=== PATIENT | female | born 1955 | race Caucasian/White ===

== ENCOUNTER 2021-12-07 13:05 | Emergency (ER) | payer MEDICARE, MEDICAID, SELFPAY ==
[2021-12-07] VITALS (21 sets, daily range): BP systolic 132–178; BP diastolic 75–118; PULSE 78–170; RESP 15–62; TEMP 36.3; O2SAT 97–100
--- NOTE | ~2021-12-07 | XR_ITS ---
XR hand BI arthritis min 3V DATE: 12/07/2021 13:53 INDICATION: Chronic swelling and deformity TECHNIQUE: 4 views of each hand. COMPARISON: None FINDINGS: There is extensive periarticular calcification of the wrist and hand, with joint space narr owing, some erosions, including typical punched out lesions, for example at the base of the distal ph alanx of the left first digit, also of the lateral head of proximal phalanx and lateral base of the m iddle phalanx of the left second digit, suggesting gout. Joint space narrowing and spurring consiste nt with osteoarthritis is noted in multiple joints as well. No fracture is detected. IMPRESSIONS:: Extensive periarticular calcifications of the wrist and hand joints, including radiocar pal, carpal, carpometacarpal, metacarpophalangeal, proximal and distal interphalangeal joints, with e rosions, including punched out erosions, suggestive of gout Polyarticular osteoarthritis Reviewed, dictated and finalized at location B. IMPRESSIONS:: Extensive periarticular calcifications of the wrist and hand join ts, including radiocarpal, carpal, carpometacarpal, metacarpophalangeal, proxim al and distal interphalangeal joints, with erosions, including punched out eros ions, suggestive of gout Polyarticular osteoarthritis
--- NOTE | ~2021-12-07 | XR_ITS ---
XR chest 2V DATE: 12/07/2021 14:31 INDICATION: Atrial fibrillation with rapid ventricular response. Wheezing. TECHNIQUE: AP and lateral views COMPARISON: 08/26/2004 PA and lateral chest FINDINGS: Cardiomegaly. There are bibasilar infiltrates and/atelectasis. Minimal pleural effusions ar e suggested. There is pulmonary vascular redistribution which might indicate mild pulmonary venous hy pertension. No pneumothorax. There is levoscoliosis of the upper thoracic spine and prominent dextroscoliosis of the lower thoraci c and lumbar spine. Degenerative changes of the thoracic and lumbar spine. Diffuse osteopenia. IMPRESSION: Cardiomegaly, pulmonary vascular redistribution and minimal pleural effusions, which may indicate mild congestive heart failure Mild bibasilar infiltrate or atelectasis Prominent thoracic and lumbar scoliosis and degenerative change Osteopenia Reviewed, dictated and finalized at location B.
--- NOTE | 2021-12-07 13:25 | ECG_ITS ---
Measurements Intervals [place] Rate: 170 P: DE: 0 QRS: -47 QRSD: 87 T: 75 QT: 255 QTc: 429 Interpretive Statements SUPRAVENTRICULAR TACHYCARDIA, POSSIBLE ATRIAL FLUTTER LEFT AXIS DEVIATION SEPTAL MYOCARDIAL INFARCTION , PROBABLY OLD ABNORMAL ECG NO PREVIOUS ECG AVAILABLE FOR COMPARISON Electronically Signed On 12-08-2021 13:21:37 CDT by Gonzales Mena M.D.
--- NOTE | 2021-12-07 13:26 | ED.EXTPRO ---
HPI - Extremity Problem General Chief complaint: Extremity Problem,Nontraumatic <MELISSA Rios Last Filed: 12/07/21 17:57> Stated complaint: arthritis to bilateral hands <Esperanza Aguilar PA-C - Last Filed: 12/07/21 17:57> Time Seen by Provider: 12/07/21 13:12 <MELISSA Rios Last Filed: 12/07/21 17:57> History of Present Illness HPI Narrative: Patient is a 66-year-old female here for evaluation of bilateral hand pain and swelling. Patient states that she has had chronic hand pain for years and her hands have been swollen for as long as she can remember that has been attributed to arthritis. She takes Tylenol as needed for pain, last took this AM. 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 She saw a new PCP today who recommended ED evaluation. Patient states her heart rate is always fast but denies chest pain, palpitations, SOB. <MELISSA Rios Last Filed: 12/07/21 17:57> Related Data Allergies/Adverse reactions: Allergies Allergy/AdvReac Type Severity Reaction Status Date / Time No Known Allergies Allergy Unverified 12/07/21 13:06 <Esperanza Aguilar PA-C - Last Filed: 12/07/21 17:57> Review of Systems Review of Systems: Gen: Denies fevers or chills Eyes: Denies eye pain or visual change ENT: Denies congestion Respiratory: Denies shortness of breath or cough CV: Denies chest pain or palpitations GI: Denies abdominal pain nausea, emesis or diarrhea denies burning, urgency, frequency or hematuria Musculoskeletal: Reports chronic bilateral hand pain. Neuro: Denies numbness, tingling, weakness or focal weakness Skin: Denies rash Except as documented, all other systems reviewed and negative <MELISSA Rios Last Filed: 12/07/21 17:57> [facility] Family History Family History: Family History (Updated 12/18/17 @ 14:07 by DOCTOR UNKNOWN) Sibling Family history of suicide, Onset Age: 36 Family history of elevated blood lipids Family history of malignant neoplasm of ovary, Onset Age: 35 Patient's brother is Mother Family history of transient ischemic attacks, Onset Age: 73 Patient's mother is Father Family history of malignant neoplasm, Onset Age: 57 Patient's father is Other Family history of arthritis <Esperanza Aguilar PA-C - Last Filed: 12/07/21 17:57> Social History Social History: Social History Smoking status: Smoker, status unknown Second hand tobacco smoke exposure: Yes Alcohol intake: current <Esperanza Aguilar PA-C - Last Filed: 12/07/21 17:57> Exam Narrative: APPEARANCE: Appears older than stated age Head: Normocephalic and atraumatic. EYES: PERRLA/EOMI, conjunctivae clear NOSE: No nasal drainage EARS: External ear normal in appearance THROAT: Oropharynx is clear. Mucous membranes are moist. NECK: Supple. No adenopathy, no masses. RESPIRATORY: Expiratory wheezing throughout lung guillermo. Airway patent, respirations nonlabored. no rales, rhonchi. CARDIOVASCULAR: Tachycardic. irregular rhythm without murmurs, rubs, or gallops. ABDOMINAL: Normoactive bowel sounds. Soft, nontender, nondistended. No rebound tenderness or guarding. MUSCULOSKELETAL: Marked swelling of bilateral hands at the MCP joints. Right hand with clawhand deformity; states she is chronically unable to move digits 4-5 on the right. Full range of motion in digits 1-3 on right and digits 1-5 on left. No tenderness to palpation along joints. Esvin nodes. NEURO: Normal speech. No focal neurologic deficits. SKIN: Skin is warm and dry. No rashes. PSYCHIATRIC: Normal affect/mood. <Esperanza Aguilar PA-C - Last Filed: 12/07/21 17:57> Course PRESCHOOL TEACHER ASSISTANT/PA Physician Supervision For this patient encounter, I reviewed the PRESCHOOL TEACHER ASSISTANT or PA documentation, t
[2021-12-07 14:15] LABS: Basophils Percent Auto 0.3 % (0.2-1.2); Eosinophils Percent Auto 10.5 % (0-4.4); Hematocrit 34.8 % (37.0-47.0); Hemoglobin 10.5 g/dL (12.0-15.0); Immature Granulocyte Absolute 0.03 K/mm3 (0.00-0.031); Immature Granulocyte Percent A 0.3 % (0-0.5); Lymphocytes Absolute Auto 1.79 K/mm3 (0.9-3.2); Lymphocytes Percent Auto 19.2 % (18.3-44.2); Mean Corpuscular HGB Conc 30.2 g/dl (32-36); Mean Corpuscular Hemoglobin 26.4 pg (26-34); Mean Corpuscular Volume 87.7 fl (80-100); Mean Platelet Volume 11.2 fl (7.4-10.4); Monocytes Absolute Auto 0.6 K/mm3 (0.1-0.6); Monocytes Percent Auto 6.6 % (2.6-8.5); Neutrophils Absolute Auto 5.9 K/mm3 (1.3-6.7); Neutrophils Percent Auto 63.1 % (45.5-73.1); Nucleated Red Blood Cells Perc 0.3 % (0.0-0.2); Platelet Count Result 421 k/mm3 (150-375); Red Blood Count 3.97 M/mm3 (4.2-5.4); Red Cell Distribution Width 18.1 % (11.5-14.5); White Blood Count 9.3 K/mm3 (4.5-10.0)
[2021-12-07] MEDS: METOPROLOL TARTRATE INJ 5 MG/5 ML VIAL 2.5 MG IV PUSH (14:16)
[2021-12-07 14:31] LABS: Phosphorus 3.7 mg/dL (2.5-4.5)
[2021-12-07 14:32] LABS: Alanine Aminotransferase 38 U/L (6-35); Albumin Level 3.6 g/dL (3.5-5.1); Alkaline Phosphatase 117 U/L (38-126); Anion Gap 7 mmol/L (8-16); Aspartate Amino Transferase 42 U/L (14-36); Bilirubin,Total 0.1 mg/dL (0.2-1.3); Blood Urea Nitrogen 22 mg/dL (7-17); Calcium 8.1 mg/dL (8.4-10.2); Carbon Dioxide 27 mmol/L (22-30); Chloride 104 mmol/L (98-107); Estimated CRCL calculation 66 ml/min; Estimated Glomerular Filt Rate > 60; Glucose 124 mg/dL (65-110); Potassium 3.8 mmol/L (3.4-5.0); Sodium 138 mmol/L (137-145)
[2021-12-07] MEDS: METOPROLOL SUCCINATE EXT REL 25 MG TABCR PO (15:12)
[2021-12-07 15:20] LABS: NT Pro B Type Natriuretic Pept 3040 pg/mL (5-100)
[2021-12-07 15:40] LABS: Amphetamine Screen Urine Negative (Negative); Barbiturate Screen Urine Negative (Negative); Benzodiazepines Screen Urine Negative (Negative); Cannabinoid Screen Urine Positive (Negative); Cocaine Screen Urine Negative (Negative); Methadone Screen Urine Negative (Negative); Opiate Screen Urine Negative (Negative); Phencyclidine Screen Urine Negative (Negative)
[2021-12-07] MEDS: ACETAMINOPHEN 325 MG TABLET 650 MG PO (16:25)
[2021-12-07 16:53] LABS: Prothrombin Time 12.9 Seconds (11.1-14.7)
[2021-12-07 16:54] LABS: Partial Thromboplastin Time 31.3 SECONDS (22.3-36.8)
== END 2021-12-07 17:06 | disposition home or self-care (01) ==
PROVIDERS: Physician Assistant; Emergency Provider General Practice; PCP Emergency Medicine
DX: M19.042 Primary osteoarthritis, left hand (principal); M19.041 Primary osteoarthritis, right hand; I48.91 Unspecified atrial fibrillation; R94.31 Abnormal electrocardiogram [ECG] [EKG]; I51.7 Cardiomegaly; M41.9 Scoliosis, unspecified; M85.88 Other specified disorders of bone density and structure, other site; R91.8 Other nonspecific abnormal finding of lung field; I47.1 Supraventricular tachycardia
CPT/HCPCS: 36415; 71046; 73130; 80053; 80307; 83735; 83880; 84100; 84443; 85025; 85610; 85730; 93005; 96374; 99284; A9270

== ENCOUNTER 2023-01-06 11:31 | Outpatient (CLI) | payer MEDICARE, MEDICAID, SELFPAY ==
[2023-01-06 11:54] LABS: Basophils Percent Auto 0.3 % (0.2-1.2); Eosinophils Absolute Auto 0.9 K/mm3 (0-0.3); Eosinophils Percent Auto 7.9 % (0-4.4); Hematocrit 35.2 % (37.0-47.0); Hemoglobin 11.1 g/dL (12.0-15.0); Immature Granulocyte Absolute 0.06 K/mm3 (0.00-0.031); Immature Granulocyte Percent A 0.5 % (0-0.5); Lymphocytes Absolute Auto 2.05 K/mm3 (0.9-3.2); Lymphocytes Percent Auto 18.3 % (18.3-44.2); Mean Corpuscular HGB Conc 31.5 g/dl (32-36); Mean Corpuscular Hemoglobin 27.2 pg (26-34); Mean Corpuscular Volume 86.3 fl (80-100); Mean Platelet Volume 10.9 fl (7.4-10.4); Monocytes Absolute Auto 1.1 K/mm3 (0.1-0.6); Neutrophils Absolute Auto 7.1 K/mm3 (1.3-6.7); Nucleated Red Blood Cells Perc 0.2 % (0.0-0.2); Platelet Count Result 346 k/mm3 (150-375); Red Blood Count 4.08 M/mm3 (4.2-5.4); Red Cell Distribution Width 19.3 % (11.5-14.5); White Blood Count 11.2 K/mm3 (4.5-10.0)
[2023-01-06 13:11] LABS: Iron 36 ug/dL (37-170)
[2023-01-06 13:15] LABS: Alanine Aminotransferase 81 U/L (6-35); Albumin Level 3.8 g/dL (3.5-5.1); Alkaline Phosphatase 159 U/L (38-126); Anion Gap 4 mmol/L (8-16); Aspartate Amino Transferase 108 U/L (14-36); Bilirubin,Total 0.4 mg/dL (0.2-1.3); Blood Urea Nitrogen 27 mg/dL (7-17); Calcium 8.7 mg/dL (8.4-10.2); Carbon Dioxide 31 mmol/L (22-30); Chloride 102 mmol/L (98-107); Estimated Glomerular Filt Rate > 60; Glucose 83 mg/dL (65-110); Lactate Dehydrogenase 559 U/L (120-246); Potassium 4.6 mmol/L (3.4-5.0); Sodium 137 mmol/L (137-145)
[2023-01-06 13:23] LABS: Percent Iron Saturation 9 % (20-50)
[2023-01-06 14:24] LABS: Folic Acid 9.2 ng/mL (2.76->20)
[2023-01-09 15:42] LABS: Methylmalonic Acid 296 nmol/L (87-318)
[2023-01-09 17:27] LABS: Albumin 3.3 g/dL (3.8-4.8); Alpha 1 Globulin 0.4 g/dL (0.2-0.3); Alpha 2 Globulin 0.8 g/dL (0.5-0.9); Beta 1 Globulin 0.5 g/dL (0.4-0.6); Gamma Globulin 1.6 g/dL (0.8-1.7)
[2023-01-09 20:52] LABS: Soluble Transferrin Receptor 1.36 mg/L (0.76-1.76)
== END 2023-01-06 11:32 | disposition home or self-care (01) ==
LOC: ANHLAB 11:35
PROVIDERS: PCP Emergency Medicine; Visit Provider Internal Medicine Hematology & Oncology
DX: D64.9 Anemia, unspecified (principal)
CPT/HCPCS: 36415; 80053; 82607; 82728; 82746; 83540; 83550; 83615; 83921; 84155; 84165; 84238; 85025

== ENCOUNTER 2024-06-11 21:37 | Inpatient (IN) | payer MEDICARE, MEDICAID, SELFPAY ==
[2024-06-11] VITALS (9 sets, daily range): BP systolic 103–131; BP diastolic 80–93; PULSE 84–106; RESP 20–23; TEMP 36; O2SAT 94–100
--- NOTE | ~2024-06-11 | CT_ITS ---
History: Fall PROCEDURE: CT head without contrast. COMPARISON: None TECHNIQUE: Axial imaging of the head performed from the skull base to the vertex without IV contrast. Sagittal a nd coronal reformations obtained. DLP: 605 mGy-cm FINDINGS: The ventricles are enlarged. The dilatation of the ventricles is proportional to the degree of sulcal prominence, not uncommon in the senescent brain. Decreased attenuation is identified within the periventricular white matter, likely secondary to micr ovascular ischemic disease. There is no mass, mass effect or midline shift. There is no abnormal extra-axial fluid collection or intracranial hemorrhage. Mucoperiosteal thickening within the bilateral ethmoid sinuses. The mastoid air cells are well aerated. No acute displaced fractures within the overlying cranium. Impression: No acute intracranial hemorrhage or suspicious mass effect. Inflammatory sinus disease. Reviewed, dictated and finalized at location A. UAGE TRANSLATOR Impression: No acute intracranial hemorrhage or suspicious mass effect. Inflammatory sinus disease.
--- NOTE | ~2024-06-11 | XR_ITS ---
EXAMINATION: XR chest 2V DATE: 06/14/2024 08:09 INDICATION: Pneumonia and shortness of breath TECHNIQUE: frontal and lateral views of the chest were obtained. COMPARISON: Chest radiograph dated 06/13/2024 FINDINGS: Calcified pleural plaques at the periphery of the right lung. Calcified nodule at the right apex cons istent with old granulomatous disease. Unchanged airspace opacities in the bilateral lower lung zones . No pleural effusion or pneumothorax. Cardiomegaly. Moderate thoracolumbar dextroscoliosis IMPRESSION: 1. Persistent opacities in the bilateral lower lung zones which could represent atelectasis, pneumoni a, mild pulmonary edema or some combination thereof. 2. Cardiomegaly. Reviewed, dictated and finalized at location A. FACTURING WEAVER IMPRESSION: 1. Persistent opacities in the bilateral lower lung zones which could represent atelectasis, pneumonia, mild pulmonary edema or some combination thereof. 2. Cardiomegaly.
--- NOTE | ~2024-06-11 | XR_ITS ---
CHEST RADIOGRAPH CLINICAL HISTORY: covid, hypoxia . COMPARISON: 12/07/2021 TECHNIQUE: Single portable view of the chest. FINDINGS The cardiomediastinal silhouette is enlarged, unchanged. Increased interstitial markings are identified bilaterally, findings suggesting mild pulmonary vascul ar congestion. Patchy alveolar infiltrates detected bilaterally. The lungs are otherwise clear. IMPRESSION: Mild pulmonary vascular congestion with patchy bilateral infiltrates Reviewed, dictated and finalized at location A. DER SET UP OPERATOR INTERNAL
--- NOTE | ~2024-06-11 | XR_ITS ---
CHEST RADIOGRAPH CLINICAL HISTORY: pneumonia . COMPARISON: 06/11/2024 TECHNIQUE: Single portable view of the chest. FINDINGS S shaped curvature of the thoracic spine is identified distorting the contents of the cardiomediastin al silhouette. Patchy infiltrate of the right mid to lower lung field. Increased interstitial markings are identified bilaterally, findings suggesting mild pulmonary vascul ar congestion. The remainder of the lungs are clear. IMPRESSION: Mild pulmonary vascular congestion with a right mid to lower lobe infiltrate Reviewed, dictated and finalized at location A. ERNAIL TECHNICIAN
--- NOTE | ~2024-06-11 | CT_ITS ---
History: Fall PROCEDURE: CT cervical spine without intravenous contrast. Examination is markedly limited by motion artifact and patient position. COMPARISON: Reference is made to an MRI examination of the cervical spine dated 12/08/2009 TECHNIQUE: Multiple contiguous axial images of the cervical spine were performed without the administration of i ntravenous contrast. DLP: 153 mGy-cm FINDINGS: 4.5 mm of anterolisthesis of C3 onto C4, not present on the 2010 examination. Degenerative disease is also noted, with osteophyte formation, disc space narrowing, endplate changes and vacuum phenomena. Kyphosis is noted. No acute fractures are present. The bilateral lung apices are unremarkable. No soft tissue abnormality is present. The airway is patent. Impression: Significant degenerative disease with 4.5 mm of anterolisthesis of C3 onto C4, an interval change fro 2009, age indeterminate. Noncontrast enhanced MRI of the cervical spine may be performed for determination of the acuity. Reviewed, dictated and finalized at location A. E COMMERCE MANAGER Impression: Significant degenerative disease with 4.5 mm of anterolisthesis of C3 onto C4, an interval change from 2009, age indeterminate. Noncontrast enhanced MRI of the cervical spine may be performed for determinati on of the acuity.
--- NOTE | ~2024-06-11 | XR_ITS ---
HISTORY: fall, dementia COMPARISON: None TECHNIQUE: 2 views of the bilateral hips along with an AP view of the pelvis FINDINGS: No acute fracture or dislocation is identified. Superior lateral sclerosis of the bilateral femoral acetabular joint spaces are present consistent with osteoarthritis. Degenerative disease within the lower lumbar spine. Fecal stasis within the colon. Air within the rectum. Mineralization is age advanced. IMPRESSION: Significant degenerative disease, without acute fracture. Reviewed, dictated and finalized at location A. GER COSMETICS
--- NOTE | 2024-06-11 21:50 | ED_ITS ---
HPI - Fall General Chief Complaint: Fall <MELISSA Downing Last Filed: 06/12/24 02:08> Stated Complaint: GLF <MELISSA Downing Last Filed: 06/12/24 02:08> Time Seen by Provider: 06/11/24 21:39 <MELISSA Downing Last Filed: 06/12/24 02:08> Source: patient, RN notes reviewed and old records reviewed <MELISSA Downing Last Filed: 06/12/24 02:08> Mode of arrival: EMS <MELISSA Downing Last Filed: 06/12/24 02:08> Limitations: dementia <MELISSA Downing Last Filed: 06/12/24 02:08> History of Present Illness HPI Narrative: Patient is a 68 y/o female, with PMH of AFIB on Eliquis/amiodarone/diltiazem, dementia, bipolar disorder, who presents to the ED via EMS with report of a fall. Patient is a resident of [facility]. Per [facility] report, patient is A&O X2 at baseline. Had an unwitnessed fall in the bathroom today. They believe she hit her head on the toilet. Unknown LOC. Patient has no complaints. Sent here for further evaluation. Patient denies any pain. Per ems report, patient was found to be hypoxic on RA upon their arrival down to 87%. She was placed on 2L NC. No previous O2 requirement. Was diagnosed with covid 19 2 days ago. <Colleen Vega PA-C - Last Filed: 06/12/24 02:08> Related Data Home Medications: Home Medications ?Medication ?Instructions ?Recorded ?Confirmed ?Last Taken ?Type albuterol sulfate 90 mcg/actuation 2 inh inhalation Q4H PRN Shortness 10/24/23 10/24/23 Unknown History aerosol inhaler Of Breath Or Wheezing amiodarone 200 mg tablet 200 mg PO DAILY 10/24/23 10/24/23 Unknown History atorvastatin 40 mg tablet (Lipitor) 40 mg PO DAILY 06/28/24 06/28/24 Unknown History diltiazem HCl 180 mg 180 mg PO DAILY 10/24/23 10/24/23 Unknown History capsule,extended release 24 hr furosemide 40 mg tablet 40 mg PO DAILY 10/24/23 10/24/23 Unknown History losartan 25 mg tablet mg 10/24/23 Unknown History <Colleen Vega PA-C - Last Filed: 06/12/24 02:08> Allergies/Adverse Reactions: Allergies Allergy/AdvReac Type Severity Reaction Status Date / Time No Known Allergies Allergy Unverified 10/24/23 09:32 <Colleen Vega PA-C - Last Filed: 06/12/24 02:08> Review of Systems 2 Review of Systems: All systems reviewed & are unremarkable except as noted in HPI. <Colleen Vega PA-C - Last Filed: 06/12/24 02:08> All systems reviewed & are unremarkable except as noted in HPI and below < Colleen Vega PA-C - Last Filed: 06/12/24 02:08> [facility] Past Medical History Medical History: Medical History Atrial fibrillation Essential (primary) hypertension Bipolar depression Dementia <Colleen Vega PA-C - Last Filed: 06/12/24 02:08> Family History Family History: Family History Sibling Family history of suicide, Onset Age: 36 Family history of elevated blood lipids Family history of malignant neoplasm of ovary, Onset Age: 35 Patient's brother is Mother Family history of transient ischemic attacks, Onset Age: 73 Patient's mother is Father Family history of malignant neoplasm, Onset Age: 57 Patient's father is Other Family history of arthritis <Colleen Vega PA-C - Last Filed: 06/12/24 02:08> Social History Social History: Social History Years smoked: 50 Smoking status: Current every day smoker Tobacco type: cigarettes Second hand tobacco smoke exposure: Yes Alcohol intake: current Substance use: never Living arrangements: alone Spiritual care concerns: No <Colleen Vega PA-C - Last Filed: 06/12/24 02:08> Exam 2 Narrative: GENERAL: Appears older than stated age, thin, non-toxic, in no acute distress. HEAD: Normocephalic, atraumatic. No wounds. EYES: Eyes are matted shut with yellow/brown crusted material ENT: Edentulous. MMs slightly dry. RESPIRATORY: Airway patent, respirations nonlabored but mildly tachypneic. Rhonchi in bases bilaterally. No appreciable wheezing. CARDIOVASCULAR: Regular rate with irregular rhythm without murmurs, rubs, or gallops. ABDOMINAL: Soft, no appreciable tenderness, nondistended. Normoactive BS. MUSCULOSKELETAL: No gross deformities. No significant peripheral edema. SKIN: Warm, dry, normal color. NEURO: Alert, but somewhat somnolent. Answers some questions. Speech clear. No ataxic movements. No appreciable focal deficits. PSYCHIATRIC: Normal interaction. <Colleen Vega PA-C - Last Filed: 06/12/24 02:08> Course STAGE SET UP WORKER/PA Physician Supervision I agree with midlevel documentation; I performed the medical decision making component of this evaluation. <Dunia Mcleod MD - Last Filed: 06/12/24 02:31> Vital Signs Vital signs: Vital Signs Respiratory Rate 23 H 06/11/24 21:41 Temperature 96.8 F L 06/11/24 21:42 Pulse Rate 92 06/12/24 01:45 Respiratory Rate 19 06/12/24 01:45 Blood Pressure 123/73 06/12/24 01:45 Pulse Oximetry 97 06/12/24 01:45 Oxygen Delivery Nasal Cannula 06/11/24 21:42 Oxygen Flow Rate 2 06/11/24 21:42 <Colleen Vega PA-C - Last Filed: 06/12/24 02:08> Vital Signs Respiratory Rate 23 H 06/11/24 21:41 Temperature 96.8 F L 06/11/24 21:42 Pulse Rate 92 06/12/24 01:45 Respiratory Rate 19 06/12/24 01:45 Blood Pressure 123/73 06/12/24 01:45 Pulse Oximetry 97 06/12/24 01:45 Oxygen Delivery Nasal Cannula 06/11/24 21:42 Oxygen Flow Rate 2 06/11/24 21:42 <Dunia Mcleod MD - Last Filed: 06/12/24 02:31> MDM - Fall MDM Narrative Medical decision making narrative: Patient presented to ED from local half-way with report of ground level fall. Unwitnessed. Possible head injury. Unknown LOC. Hx of dementia, bipolar disorder, AFIB on eliquis. Patient was reported to be hypoxic by EMS down to 87% on room air upon their arrival. She was reportedly diagnosed with COVID 19 2 days ago. Placed on 2L NC. Weaned O2 down to RA here and patient did recurrently become hypoxic while sitting in ED bed. Will obtain labs and imaging for further eval. CT brain/cervical spine negative for acute traumatic findings or intracranial pathology. CXR with mild pulmonary edema/wero patchy infiltrates XR hip/pelvis negative for fx. EKG with sinus tachycardia, nonspecific ST changes, somewhat poor quality. Baseline artifact and wander present. QTC is notably prolonged to 561. [place] [address]. 1% bands. Anemia noted with hemoglobin of 9. Appears fairly consistent with previous records. CMP is fairly unremarkable. Minimal transaminitis. Stable kidney function. Stable electrolytes. Troponin 0.017. BNP is mildly elevated to just over 2000. Patient does have some pulmonary edema on chest x-ray, but otherwise does not appear acutely fluid overloaded. No significant peripheral edema. Given small amount of fluids in the ED. COVID testing is positive here. Patient was reportedly dx'd 3 days ago at [facility]. Patient will be admitted for further evaluation of COVID, hypoxia. Will be started on antibiotics given bilateral patchy infiltrate seen on chest x-ray with marked leukocytosis. Blood cultures were obtained. Rocephin and doxycycline started in the ED. Discussed case with Dr. Perez, hospitalist, accepted patient for admission. Will add decadron and remdesivir. Admit to med tele given prolonged qtc. <Colleen Vega PA-C - Last Filed: 06/12/24 02:08> Medical Records Attestation: I reviewed the patient's medical records. <Colleen Vega PA-C - Last Filed: 06/12/24 02:08> Lab Data Attestation: I reviewed the patient's lab results. <Colleen Vega PA-C - Last Filed: 06/12/24 02:08> Result diagrams: 06/11/24 23:33 06/11/24 23:33 <Colleen Vega PA-C - Last Filed: 06/12/24 02:08> Labs: Lab Results 06/11/24 06/12/24 Range/Units 23:33 01:11 WBC 19.0 H (4.5-10.0) K/mm3 RBC 3.46 L (4.2-5.4) M/mm3 Hgb 9.0 L (12.0-15.0) g/dL Hct 29.0 L (37.0-47.0) % MCV 83.8 (80-100) fl MCH 26.0 (26-34) pg MCHC 31.0 L (32-36) g/dl RDW 19.3 H (11.5-14.5) % Plt Count 356 (150-375) k/mm3 MPV 11.6 H (7.4-10.4) fl Immature Gran % (Auto) Not Reportable Neut % (Auto) Not Reportable Lymph % (Auto) Not Reportable Mathews % (Auto) Not Reportable Eos % (Auto) Not Reportable Baso % (Auto) Not Reportable Lymph # (Auto) Not Reportable Mathews # (Auto) Not Reportable Eos # (Auto) Not Reportable Baso # (Auto) Not Reportable Abs Immat Gran (auto) Not Reportable Absolute Neuts (auto) Not Reportable Absolute Nucleated RBC Not Reportable Total Counted 100 Neutrophils % (Manual) 70 (46-73) % Band Neutrophils % 1 (0-6) % Lymphocytes % (Manual) 17.0 L (18-44) % Monocytes % (Manual) 11 H (3-9) % Eosinophils % (Manual) 1 (0-4) % Nucleated RBC % Not Reportable Abs Neuts (Manual) 13.49 H (1.7-7.2) K/mm3 Abs Lymphs (Manual) 3.23 (1.1-4.5) K/mm3 Abs Monocytes (Manual) 2.09 H (0.1-0.90) K/mm3 Absolute Eos (Manual) 0.19 (0.02-0.50) K/mm3 Smudge Cells Present Platelet Estimate Adequate (Adequate) Hypochromasia 2+ Poikilocytosis 1+ Anisocytosis 1+ Target Cells 1+ Ovalocytes 1+ Schistocytes None seen PT 18.4 H (11.1-14.7) Seconds INR 1.5 APTT 34.5 (22.3-36.8) Seconds Sodium 138 (137-145) mmol/L Potassium 3.5 (3.4-5.0) mmol/L Chloride 100 (98-107) mmol/L Carbon Dioxide 32 H (22-30) mmol/L Anion Gap 6 (4-12) mmol/L BUN 19 H (7-17) mg/dL Creatinine 0.57 L (0.7-1.0) mg/dL Estim Creat Clear Calc 64 ml/min Estimated GFR > 60 (59 - ) Glucose 86 (65-110) mg/dL Calcium 8.1 L (8.4-10.2) mg/dL Magnesium 2.1 (1.6-2.3) mg/dL Total Bilirubin 0.7 (0.2-1.3) mg/dL AST 39 H (14-36) U/L ALT 56 H (6-35) U/L Alkaline Phosphatase 106 (38-126) U/L Troponin I 0.017 (0.000-0.034) ng/mL NT-Pro-B Natriuret Pep 2180 H (19.9-100) pg/mL Total Protein 7.0 (6.3-8.2) g/dL Albumin 3.1 L (3.5-5.1) g/dL Urine Color Yellow (Yellow) Urine Appearance Clear (Clear) Urine pH 7.0 (5.0-9.0) Ur Specific Kirkman 1.019 (1.001-1.035) Urine Protein Trace (Negative) mg/dL Urine Glucose (UA) Negative (Negative) mg/dL Urine Ketones Negative (Negative) mg/dL Ur Blood (Man) Negative (Negative) Urine Nitrate Negative (Negative) Urine Bilirubin Negative (Negative) Urine Urobilinogen 4.0 H (<2.0) mg/dL Add Ur Microanalysis Reviewed Leukocyte Esterase Rfl Negative (Negative) SHANA/UL Urine RBC 3-5 H (0-2) /hpf Urine WBC 0-5 (0-3) /hpf Ur Squamous Epith Cells None seen (Few) /hpf Urine Bacteria None seen /hpf Urine Casts 0-2 Influenza A (RT-PCR) Negative (Negative) Influenza B (RT-PCR) Negative (Negative) RSV (RT-PCR) Negative (Negative) SARS-CoV-2 RNA (RT-PCR) Positive A (Negative) <Colleen Vega PA-C - Last Filed: 06/12/24 02:08> Lab Results 06/11/24 06/12/24 Range/Units 23:33 01:11 WBC 19.0 H (4.5-10.0) K/mm3 RBC 3.46 L (4.2-5.4) M/mm3 Hgb 9.0 L (12.0-15.0) g/dL Hct 29.0 L (37.0-47.0) % MCV 83.8 (80-100) fl MCH 26.0 (26-34) pg MCHC 31.0 L (32-36) g/dl RDW 19.3 H (11.5-14.5) % Plt Count 356 (150-375) k/mm3 MPV 11.6 H (7.4-10.4) fl Immature Gran % (Auto) Not Reportable Neut % (Auto) Not Reportable Lymph % (Auto) Not Reportable Mathews % (Auto) Not Reportable Eos % (Auto) Not Reportable Baso % (Auto) Not Reportable Lymph # (Auto) Not Reportable Mathews # (Auto) Not Reportable Eos # (Auto) Not Reportable Baso # (Auto) Not Reportable Abs Immat Gran (auto) Not Reportable Absolute Neuts (auto) Not Reportable Absolute Nucleated RBC Not Reportable Total Counted 100 Neutrophils % (Manual) 70 (46-73) % Band Neutrophils % 1 (0-6) % Lymphocytes % (Manual) 17.0 L (18-44) % Monocytes % (Manual) 11 H (3-9) % Eosinophils % (Manual) 1 (0-4) % Nucleated RBC % Not Reportable Abs Neuts (Manual) 13.49 H (1.7-7.2) K/mm3 Abs Lymphs (Manual) 3.23 (1.1-4.5) K/mm3 Abs Monocytes (Manual) 2.09 H (0.1-0.90) K/mm3 Absolute Eos (Manual) 0.19 (0.02-0.50) K/mm3 Smudge Cells Present Platelet Estimate Adequate (Adequate) Hypochromasia 2+ Poikilocytosis 1+ Anisocytosis 1+ Target Cells 1+ Ovalocytes 1+ Schistocytes None seen PT 18.4 H (11.1-14.7) Seconds INR 1.5 APTT 34.5 (22.3-36.8) Seconds Sodium 138 (137-145) mmol/L Potassium 3.5 (3.4-5.0) mmol/L Chloride 100 (98-107) mmol/L Carbon Dioxide 32 H (22-30) mmol/L Anion Gap 6 (4-12) mmol/L BUN 19 H (7-17) mg/dL Creatinine 0.57 L (0.7-1.0) mg/dL Estim Creat Clear Calc 64 ml/min Estimated GFR > 60 (59 - ) Glucose 86 (65-110) mg/dL Calcium 8.1 L (8.4-10.2) mg/dL Magnesium 2.1 (1.6-2.3) mg/dL Total Bilirubin 0.7 (0.2-1.3) mg/dL AST 39 H (14-36) U/L ALT 56 H (6-35) U/L Alkaline Phosphatase 106 (38-126) U/L Troponin I 0.017 (0.000-0.034) ng/mL NT-Pro-B Natriuret Pep 2180 H (19.9-100) pg/mL Total Protein 7.0 (6.3-8.2) g/dL Albumin 3.1 L (3.5-5.1) g/dL Urine Color Yellow (Yellow) Urine Appearance Clear (Clear) Urine pH 7.0 (5.0-9.0) Ur Specific Kirkman 1.019 (1.001-1.035) Urine Protein Trace (Negative) mg/dL Urine Glucose (UA) Negative (Negative) mg/dL Urine Ketones Negative (Negative) mg/dL Ur Blood (Man) Negative (Negative) Urine Nitrate Negative (Negative) Urine Bilirubin Negative (Negative) Urine Urobilinogen 4.0 H (<2.0) mg/dL Add Ur Microanalysis Reviewed Leukocyte Esterase Rfl Negative (Negative) SHANA/UL Urine RBC 3-5 H (0-2) /hpf Urine WBC 0-5 (0-3) /hpf Ur Squamous Epith Cells None seen (Few) /hpf Urine Bacteria None seen /hpf Urine Casts 0-2 Influenza A (RT-PCR) Negative (Negative) Influenza B (RT-PCR) Negative (Negative) RSV (RT-PCR) Negative (Negative) SARS-CoV-2 RNA (RT-PCR) Positive A (Negative) <Dunia Mcleod MD - Last Filed: 06/12/24 02:31> Imaging Data Attestation: I personally reviewed and interpreted this imaging study as follows: < Colleen Vega PA-C - Last Filed: 06/12/24 02:08> Radiologist's impression: ITS Impressions Head CT 06/11/24 22:28 Impression: No acute intracranial hemorrhage or suspicious mass effect. Inflammatory sinus disease. Cervical Spine CT 06/11/24 22:30 Impression: Significant degenerative disease with 4.5 mm of anterolisthesis of C3 onto C4, an interval change from 2009, age indeterminate. Noncontrast enhanced MRI of the cervical spine may be performed for determination of the acuity. Chest X-Ray 06/11/24 22:37 IMPRESSION: Mild pulmonary vascular congestion with patchy bilateral infiltrates Hip/Pelvis X-Ray 06/11/24 22:39 IMPRESSION: Significant degenerative disease, without acute fracture. <Colleen Vega PA-C - Last Filed: 06/12/24 02:08> ECG Data EKG #1: Attestation: I personally reviewed and interpreted this ECG as follows: <Colleen eVga PA-C - Last Filed: 06/12/24 02:08> ECG completion date: 06/11/24 <Colleen Vega PA-C - Last Filed: 06/12/24 02:08> ECG completion time: 23:37 <Colleen Vega PA-C - Last Filed: 06/12/24 02:08> EKG Interpretation: tachycardia (106), sinus rhythm, non-specific ST changes, widened QRS, prolonged QT and other (baseline wander and artifact) <Colleen Vega PA-C - Last Filed: 06/12/24 02:08> Discharge Plan Discharge Clinical Impression: COVID-19, Acute hypoxic respiratory failure, Fall from ground level, Multifocal pneumonia, Prolonged QT interval <MELISSA Downing Last Filed: 06/12/24 02:08> Patient Disposition: Still a Patient <MELISSA Downing Last Filed: 06/12/24 02:08> Condition: Stable <MELISSA Downing Last Filed: 06/12/24 02:08> Patient Language: Guamanian <MELISSA Downing Last Filed: 06/12/24 02:08> Prescriptions: No Action metoprolol succinate 25 mg tablet extended release 24 hr 25 mg PO DAILY Qty: 30 0RF apixaban 5 mg tablet 5 mg PO BID Qty: 60 0RF furosemide 40 mg tablet 40 mg PO DAILY atorvastatin [Lipitor] 40 mg tablet 40 mg PO DAILY diltiazem HCl 180 mg capsule,extended release 24hr 180 mg PO DAILY amiodarone 200 mg tablet 200 mg PO DAILY losartan 25 mg tablet albuterol sulfate 90 mcg/actuation HFA aerosol inhaler 2 inh INHALATION Q4H PRN (Reason: Shortness Of Breath Or Wheezing) <MELISSA Downing Last Filed: 06/12/24 02:08> Follow-up/Referrals: Latisha,Kelsey Ramachandran APRN [Primary Care Provider] - <MELISSA Downing Last Filed: 06/12/24 02:08>
--- NOTE | 2024-06-11 22:06 | ECG_ITS ---
Test Date: 2024-06-11 23:37:46 Measurements Intervals [place] Rate: 106 P: 249 PA: 142 QRS: -80 QRSD: 181 T: 11 QT: 422 QTc: 561 Interpretive Statements SINUS OR ECTOPIC ATRIAL TACHYCARDIA RIGHT BUNDLE BRANCH BLOCK LEFT ANTERIOR FASCICULAR BLOCK BASELINE ARTIFACT- III, AVF, V1, V5-V6 ABNORMAL ECG No previous ECG available for comparison Electronically Signed On 06-12-2024 07:44:40 STOGIE PACKER by Shaw Mckenna D.O.
--- OUTSIDE RECORDS SUMMARY | 2024-06-11 22:06 | XMS_ITS | Clinical Summary ---
Author Organization [facility] Address [address] [place] [address] Care Team Providers Care Supervisor Shaving And Splitting Name Role Phone Unavailable Primary Care Provider Unavailabl e Allergies No known active allergies Medications albuterol sulfate HFA 90 mcg/actuation aerosol inhaler Take 1 Puff by inhalation every 6 hours as needed. 3 Active albuterol (PROVENTIL,VENTOL IN) 2.5 mg /3 mL (0.083 %) Solution for Nebulization Take 2.5 mg by inhalation. Active apixaban (Eliquis) 5 mg tablet Take 5 mg by mouth 2 times daily. 3 Active furosemide (LASIX) 40 mg tablet Take 40 mg by mouth daily. 3 Active losartan (COZAAR) 25 mg tablet Take 25 mg by mouth daily. 3 Active amiodarone (CORDARONE) 200 mg tablet Take 200 mg by mouth daily. Active carbamide peroxide (DEBROX) 6.5 % Drops 5 Drops 2 times daily. Active diltiaZEM (CARDIZEM CD) 360 mg Controlled Delivery 24 hour capsule Take 360 mg by mouth daily. Active ERGOCALCIFEROL, VITAMIN D2, ORAL Take by mouth. Active FLUTICASONE PROPION-SALMETERO L INHALATION Take by inhalation. Active fluticasone-umecl idinium-vilantero l (Trelegy Ellipta) 100-62.5-25 mcg Disk with Device Take 1 Puff by inhalation daily. Active prednisoLONE 5 mg tablet Take 2.5 mg by mouth daily. Active Active Problems No known active problems Family History Medical History Relation Name Comments No Known Problems Brother Leukemia Father Cancer Mother Cancer Sister 1 No Known Problems Sister 2 No Known Problems Sister 3 Relation Name Status Comments Brother Father Mother Sister 1 Alive Sister 2 Alive Sister 3 Alive Social History Tobacco Use Types Packs/Day Years Used Date Smoking Tobacco: Every Day Cigarettes 0.5 40 Smokeless Tobacco: Never Tobacco Cessation:Ready to Q uit: Not Asked; Counseling Given: Not Answered Alcohol Use Standard Drinks/Week Comments Yes 0 (1 standard drink = 0.6 oz pur e alcohol) Socially Comments Unknown Sex and Gender Information Value Date Recorded Sex Assigned at Not on file Legal Sex Female 10:46 PM CDT Gender Identity Not on file Sexual Orientation Not on file Last Filed Vital Signs Vital Sign Reading Time Taken Comments Blood Pressure 133/68 01/21/2023 2:02 PM CDT Pulse 89 01/21/2023 2:01 PM CDT Temperature 36.5 C (97.7 F) 01/21/2023 2:01 PM CDT Respiratory Rate 10 01/21/2023 2:01 PM CDT Oxygen Saturation 100% 01/21/2023 2:01 PM CDT Inhaled Oxygen Concentration - - Weight 53.5 kg (118 lb) 01/21/2023 2:01 PM CDT Height 162.6 cm (5' 4 ) 01/06/2023 10:25 AM CDT Body Mass Index 20.25 01/06/2023 10:25 AM CDT Plan of Treatment Health Maintenance Due Date Last Done Comments DTAP/TDAP/TD VACCINES (1 - Tdap) 11/13/1975 PNEUMOCOCCAL VACCINE 65+ YEARS (1 of 2 - PCV) 11/12/18 76 BREAST CANCER SCREENING 1996 COLORECTAL SCREENING 2001 Colorectal Cancer Screening 2001 FIT-DNA Q 3 years 2001 FIT/FOBT Q 1 year 2001 Flex Sig/CT Colonography Q 5 years 2001 ZOSTER VACCINE (1 of 2) 2006 RSV VACCINE (60+ or ) (1 - Risk 60-74 years 1-dose series) 2016 OSTEOPOROSIS SCREENING 2021 INFLUENZA VACCINE (#1) 2023 Insurance [facility] [place]
--- OUTSIDE RECORDS SUMMARY | 2024-06-11 22:06 | XMS_ITS | Referral Summary ---
Author Organization [facility] Address [address] [facility] [place] [address] Care Team Providers Care Filter Assembler Name Role Phone Unavailable Primary Care Provider Unavailabl e Source Comments [facility],non-owned Affiliates and Associated Physician Practices is amultiple site organization consisting of ambulatory clinics and hospital sitesin [place], [place], [place] and [place]. This disclosure is being madepursuant to the Care Everywhere program and may not contain all information available regarding this patient. Last updated 18.[facility] Allergies No known active allergies Medications * Be aware that medications may not be up to date on this document. Alwaysverify current medications with the patient. Medication Sig Dispensed Refills Start Date End Date Status ALPRAZOLAM PO Active Triamterene-HCTZ (MAXZIDE PO) Active hydrocodone-acetaminoph en 5-500 MG tablet Active alendronate (FOSAMAX) 70 MG tablet Active piroxicam (FELDENE) 20 MG capsule Take 1 Cap by mouth once daily. 30 Cap 5 09/07/2012 Active Active Problems Problem Noted Date Diagnosed Date Cervical spondylosis without myelopathy 09/11/19 13 Sprain and strain of shoulder and upper arm 08/26 Hypercholesteremia 09/07/2012 Migraine 09/07/2012 HTN (hypertension) 09/07/2012 Social History Tobacco Use Types Packs/Day Years Used Date Smoking Tobacco: Every Day Smokeless Tobacco: Never Alcohol Use Standard Drinks/Week Comments Not Asked 0 (1 standard drink = 0.6 oz pur e alcohol) Sex and Gender Information Value Date Recorded Sex Assigned at Not on file Gender Identity Not on file Sexual Orientation Not on file Last Filed Vital Signs Vital Sign Reading Time Taken Comments Blood Pressure 121/83 09/07/2012 1:37 PM CDT Pulse 66 09/07/2012 1:37 PM CDT Temperature - - Respiratory Rate 20 09/07/2012 1:37 PM CDT Oxygen Saturation - - Inhaled Oxygen Concentration - - Weight 66.2 kg (146 lb) 09/07/2012 1:37 PM CDT Height 162.6 cm (5' 4 ) 09/07/2012 1:37 PM CDT Body Mass Index 25.06 09/07/2012 1:37 PM CDT Plan of Treatment Not on file
--- OUTSIDE RECORDS SUMMARY | 2024-06-11 22:06 | XMS_ITS | Patient Health Summary ---
Author Organization [facility] Address [address] [facility] [place] [address] Care Team Providers Care Oracle Hyperion Consultant Name Role Phone Unavailable Primary Care Provider Unavailabl e Note from [facility],non-owned Affiliates and Associated Physician Practices is amultiple site organization consisting of ambulatory clinics and hospital sitesin [place], [place], [place] and [place]. This disclosure is being madepursuant to the Care Everywhere program and may not contain all information available regarding this patient. Last updated 18.[facility] Allergies No known active allergies Medications * Be aware that medications may not be up to date on this document. Alwaysverify current medications with the patient. * ALPRAZOLAM PO * Triamterene-HCTZ (MAXZIDE PO) * hydrocodone-acetaminophen 5-500 MG tablet * alendronate (FOSAMAX) 70 MG tablet * piroxicam (FELDENE) 20 MG capsule(Started 09/07/2012) Take 1 Cap by mouth once daily. 5 refills left Active Problems Problem Noted Date Diagnosed Date [...] Mass Index 25.06 09/07/2012 1:37 PM CDT Procedures * MRI CERVICAL SPINE WO CONTRAST(Performed 08/27/2012) Results * MRI SPINE CERVICAL NON CONTRAST (08/27/2012) Anatomical Region Laterality Modality Pelvis Other Alvaro Peters MD MR ORDERABLES
--- OUTSIDE RECORDS SUMMARY | 2024-06-11 22:06 | XMS_ITS | Continuity of Care Document ---
Author Organization [facility] Address [address] [place] [address] [place] [address] Phone Care Team Providers Care Band Tacker Name Role Phone Jeff Galan Unavailable Unavailable Procedures Procedure Date Office/outpatient Visit, Est Office/outpatient Visit, New Advance Directives Directive Yes / No Effective Date File Name No Information Encounters Encounter Description Practice Location Reason(s) For Visit Diagnoses Date Provider Providers Copied on Encounter Office/outpat ient Visit, [facility], [address] [place] [address] [address], [place], [place], [id number], tel:[phone] [facility] [place] No Information 5-201 0 Krishnasamy Jeff. [address] [address], [place], [address], [place]. tel:[phone] Office/outpat ient Visit, [facility], [address] [place] [address] [address], [place], [place], [id number], tel:[phone] [facility] No Information 0-201 0 Krishnasamy Jeff. [address] [facility] [address], [place], [address], [place]. tel:[phone] Family History Family Member Type Diagnosis Age At Onset No Information Payers Payer name Insurance type Covered alliance party ID Authoriza tion(s) Medicare [facility] [id number] Medicaid [facility] [id number] Social History Type Description Quantity Date Captured Comments Sex Female Smoking Status No Information Chief Complaint And Reason For Visit No Information Reason For Referral Reason For Referral No Information History Of Present Illness Encounter Date Complaint History Of Prese nt Illness No Information Functional Status Date Functional Assessmen t No Information Instructions Date Instruction Additional Infor mation No Information Assessments Type Assessment Date No Information Patient Care Teams Name Effective Dates (start - stop) Status Members No Information
--- OUTSIDE RECORDS SUMMARY | 2024-06-11 22:06 | XMS_ITS | Clinical Summary ---
Author Organization [facility] Address [address] [facility] [place] [address] Care Team Providers Care Career Agent Name Role Phone Unavailable Primary Care Provider Unavailabl e Source Comments [facility],non-owned Affiliates and Associated Physician Practices is amultiple site organization consisting of ambulatory clinics and hospital sitesin [place], [place], [place] and [place]. This disclosure is being madepursuant to the Care Everywhere program and may not contain all information available regarding this patient. Last updated 18.[facility] Allergies No known active allergies Medications * [...] 09/07/2012 1:37 PM CDT Plan of Treatment Health Maintenance Due Date Last Done Comments BONE DENSITY TESTING 1956 COLOGUARD (AGES 45-75) - COL ON CA SCREENING 1956 COLON MONITORING 1956 COLONOSCOPY - COLON CA SCREENING 1956 CT COLONOGRAPHY - COLON CA SCREENING 1956 Colorectal Cancer Screening 1956 FIT - COLON CA SCREENING 1956 FLEX SIG - COLON CA SCREENING 1956 LIPID TESTING 1956 MAMMOGRAM 1956 MEDICARE AWV 12 MONTHS 1956 HEPATITIS C SCREENING 11/08/1974 DTAP/TDAP/TD VACCINES (1 - Tdap) 11/13/1975 PNEUMOCOCCAL VACCINE 50+ (1 of 2 - PCV) 11/13/1975 ZOSTER VACCINE (1 of 2) 2006 COVID-19 VACCINE ( - 2023-2 5 season) 2023 INFLUENZA VACCINE (#1) 2023 DEPRESSION SCREENING 04/28/2024 Respiratory Syncytial Virus (RSV) Vaccine Pt: or over 60 yrs (1 - 1-dose 75+ series) 11/13/2031 HEPATITIS B VACCINE Aged Out No longe r eligible based on patient's age to complete this topic HIB VACCINE Aged Out No longer eligi ble based on patient's age to complete this topic HPV VACCINE Aged Out No longer eligi ble based on patient's age to complete this topic MENINGOCOCCAL (Group B) VACCINE Aged Out No longer eligible based on patient's age to complete this topic MENINGOCOCCAL VACCINE Aged Out No ingris lashay eligible based on patient's age to complete this topic
--- OUTSIDE RECORDS SUMMARY | 2024-06-11 22:06 | XMS_ITS | Referral Summary ---
Author Organization [facility] Address [address] [place] [address] Care Team Providers Care Hotel Maintenance Technician Name Role Phone Reynaldo Bravo MD Primary Care Provider [phone] Allergies No known active allergies Medications traZODone (DESYREL) 100 mg tablet Take 100 mg by mouth nightly. [address] (CYMBALTA) 60 mg capsule Take 60 mg by mouth nightly. 8 Active carbidopa-levod opa (SINEMET) 25-100 mg per tablet Take 1 tablet by mouth daily. 8 Active ALPRAZolam (XANAX) 0.5 mg tablet 0.5 mg 3 (three) times a day as needed. 8 Active alendronate (FOSAMAX) 70 mg tablet 8 Active OXcarbazepine (TRILEPTAL) 300 mg tablet Take 300 mg by mouth 2 (two) times a day. Active albuterol (PROVENTIL,VENT KIANA) 2.5 mg /3 mL (0.083 %) nebulizer solution Take 2.5 mg by nebulization every 4 (four) hours as needed for wheezing. Active calcium carbonate-vitam in D3 1,250mg (500mg elemental) - 200 units per tablet Take 1 tablet by mouth 2 (two) times a day with meals. 60 tablet 8 Active aspirin 81 mg chewable tablet Take 1 tablet (81 mg total) by mouth daily. 30 tablet 8 Active lidocaine (LIDODERM) 5 % Apply 1 patch topically daily. Remove & discard patch within 12 hours or as directed by MD. 30 patch 8 Active Additional Information Patient not taking.Reported on 05/04/2019 nicotine (NICODERM CQ) [address] 1 patch on the skin daily. 30 patch 8 Active metoprolol (LOPRESSOR) 25 mg tablet Take 2 tablets (50 mg total) by mouth 2 (two) times a day. 60 tablet 1 8 Active furosemide (LASIX) 40 mg tablet Take 1 tablet (40 mg total) by mouth 2 (two) times a day. 60 tablet 11 8 Active valsartan (DIOVAN) 40 mg tablet Take 1 tablet (40 mg total) by mouth 2 (two) times a day. 60 tablet [address] (PROTONIX) 40 mg EC tablet Take 1 tablet (40 mg total) by mouth daily. 30 tablet 1 8 Active PROAIR HFA 90 mcg/actuation inhaler 9 Active hydroCHLOROthia zide (MICROZIDE) 12.5 mg capsule 9 Active piroxicam (FELDENE) 20 mg capsule Take 20 mg by mouth. 3 Active triamterene-hyd roCHLOROthiazid e (MAXZIDE,DYAZID E) 75-50 mg per tablet Active atorvastatin (LIPITOR) 40 mg tablet 9 Active doxycycline monohydrate (MONODOX) 100 mg capsule doxycycline monohydrate 100 mg capsule Active SPIRIVA RESPIMAT 2.5 mcg/actuation inhaler 9 Active traMADol (ULTRAM) 50 mg tablet tramadol 50 mg tablet Active HYDROcodone-javi taminophen (Lorcet, HYDROcodone,) 5-325 mg per tablet Lorcet (hydrocodone) 5 mg-325 mg tablet Active gabapentin (NEURONTIN) 100 mg capsule gabapentin 100 mg capsule Active Active Problems Problem Noted Date Diagnosed Date Traumatic incomplete tear of right rotator cuff 05/06/2019 Assessment & Plan (05/06/2019 8:11 AM WEB COMMUNICATIONS SPECIALIST): Patient most likely sustained a partial-thickness rotator cuff tear in her fall. She responded wants to cortisone injection in the past and after reviewing the treatment options elected undergo a follow-up injection today. She should avoid heavy lifting work on stretching exercises. She is not regaining full mobility and use of the arms further workup and/or therapy may be needed Traumatic incomplete tear of left rotator cuff 0 05/06/2019 Assessment & Plan (05/06/2019 8:10 AM WEB COMMUNICATIONS SPECIALIST): The patient's history and exam is consistent with a partial-thickness rotator cuff tear with impingement. After reviewing the treatment options she elected undergo a cortisone injection. She tolerated the procedure well. 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 This affects the pinch strength inability use the hands. She has secondary contractures in her fingers as well due to unknown causes. Would recommend the patient get evaluated by hand subspecialist Peripheral vascular disease 12/31/2018 Assessment & Plan (05/06/2019 8:15 AM WEB COMMUNICATIONS SPECIALIST): Patient has clinical evidence of peripheral vascular disease in her upper extremities. She most likely should discontinue smoking. This may help improve the healing potential of her rotator cuffs as well as circulation in both of her arms Assessment & Plan (12/31/2018 4:49 PM CDT): Patient is likely to have fairly significant peripheral vascular disease do a long smoking history. Patient was advised to discontinue smoking to help improve her circulation. She should keep her cholesterol in good control as possible and have medical follow-up as needed Right rotator cuff tendinitis 12/31/2018 Assessment & Plan (12/31/2018 4:48 PM CDT): By exam and history the patient has rotator cuff tendinitis of the right shoulder. After reviewing the treatment options of cortisone injection was given through a sterile field. She tolerated the procedure well. Would not recommend treating chronic pain with narcotics. Patient was advised to work on [id number] exercise the shoulder to help prevent a frozen shoulder. If she would like she was advised to call would be happy to arrange for formal physical therapy but typically the shot may be sufficient alone Degenerative disc disease, cervical 06/18/2018 Degenerative cervical spinal stenosis 06/18/2018 Encounter for long-term opiate analgesic use 10/2018 Sacroiliitis 06/04/2018 Cervicalgia 05/28/2018 Cervical radiculopathy 05/28/2018 CHF (congestive heart failure) ([facility]) 018 Assessment & Plan (04/09/2018 11:37 PM WEB COMMUNICATIONS SPECIALIST): New onset, unknown if it is diastolic or systolic or combined. Echo is pending. Cardiology has seen patient. Will start patient on Lasix IV 20 b.i.d., daily weights and strict I&Os. Will check bladder scan prior to Lasix to ensure patient does not have urinary retention. Leukocytosis 04/09/2018 Assessment & Plan (04/09/2018 11:30 PM WEB COMMUNICATIONS SPECIALIST): Exact etiology unclear, possibly related to steroid injection in the knee. Patient does not appear to have any infections. Lactate was 1.1. Will continue to monitor. Bipolar disorder 04/09/2018 Assessment & Plan (04/09/2018 11:28 PM WEB COMMUNICATIONS SPECIALIST): Will resume home medications Cigarette nicotine dependence without complicati on 04/09/2018 Assessment & Plan (04/09/2018 11:27 PM WEB COMMUNICATIONS SPECIALIST): Patient smokes 1 pack per day and has done so for over 45 years. Will order nicotine patch. Patient states she needs to quit smoking. Insomnia 04/09/2018 Assessment & Plan (04/09/2018 11:27 PM WEB COMMUNICATIONS SPECIALIST): Patient is on trazodone at night however as we will be diuresing patient will hold trazodone for now to prevent falls. Normocytic anemia 04/09/2018 Assessment & Plan (04/09/2018 11:26 PM WEB COMMUNICATIONS SPECIALIST): No baseline hemoglobin. Patient denies any bleeding. Will check FOBT and iron profile. Continue to monitor. Cervical spondylosis without myelopathy 09/11/19 HTN (hypertension) 09/07/2012 Hypercholesteremia 09/07/2012 Migraine 09/07/2012 Sprain and strain of shoulder and upper arm 08/26 Arthralgia of shoulder 04/27/2012 Elevated troponin I level Acute diastolic CHF (congestive heart failure) ( [facility]) Pneumonia of both lungs due to infectious organi sm Transaminitis NSTEMI (non-ST elevated myocardial infarction) ( [facility]) Leg swelling Bilateral pleural effusion Primary osteoarthritis of right shoulder Numbness and tingling of both upper extremities Social History Tobacco Use Types Packs/Day Years Used Date Smoking Tobacco: Every Day Cigarettes 1 40 Smokeless Tobacco: Former Tobacco Cessation:Ready to Q uit: Yes; Counseling Given: Yes Alcohol Use Standard Drinks/Week Comments Yes 0 (1 standard drink = 0.6 oz pur e alcohol) occasional PHQ-2 Answer Date Recorded PHQ-2 Score 3 12/18/2018 Personal Safety Answer Date Recorded Getting School Help Needed Not on file 07/11 Comments Unknown Sex and Gender Information Value Date Recorded Sex Assigned at Not on file Legal Sex Female 8:30 AM WEB COMMUNICATIONS SPECIALIST Gender Identity Not on file Sexual Orientation Not on file Last Filed Vital Signs Vital Sign Reading Time Taken Comments Blood Pressure 137/88 04/08/2019 3:30 PM WEB COMMUNICATIONS SPECIALIST Pulse 99 04/08/2019 3:30 PM WEB COMMUNICATIONS SPECIALIST Temperature 37.7 C (99.8 F) 01/07/2019 4:09 PM CDT Respiratory Rate 20 04/08/2019 3:30 PM WEB COMMUNICATIONS SPECIALIST Oxygen Saturation 95% 04/08/2019 3:30 PM WEB COMMUNICATIONS SPECIALIST Inhaled Oxygen Concentration - - Weight 54.4 kg (120 lb) 05/04/2019 3:00 PM WEB COMMUNICATIONS SPECIALIST Height 162.6 cm (5' 4 ) 05/04/2019 3:00 PM WEB COMMUNICATIONS SPECIALIST Body Mass Index 20.6 05/04/2019 3:00 PM WEB COMMUNICATIONS SPECIALIST Plan of Treatment Not on file Goals Goal Patient Goal Type Associated Problems Recent Progress Patient-Stated? Author [facility] On track( 019 3:11 PM CDT) Yes Amalia Fenton, RN Note: Pt would like to be able to cook food and ride bike again Insurance [employer] HMO MEDICARE Advance Directives For more information, please contact: [phone] * Full Code (Latest Code Status on File) Date Activated Date Inactivated Comments 04/09/2018 3:21 PM 04/17/2018 2:27 PM Care Teams Hotel Maintenance Technician Relationship Specialty Start Date End Date Reynaldo Bravo MD PCP - General Emergency Medicine 07/01/22
--- OUTSIDE RECORDS SUMMARY | 2024-06-11 22:06 | XMS_ITS | Clinical Summary ---
Author Organization [facility] Address [address], [place] [address] Care Team Providers Care Pilot Fuel Engineer Name Role Phone Reynaldo Bravo MD Primary Care Provider [phone] Allergies No known active allergies Medications traZODone [...] 05/06/2019 Assessment & Plan (05/06/2019 8:11 AM SUPPLIER QUALITY): Patient most likely sustained a partial-thickness rotator [...] 05/06/2019 Assessment & Plan (05/06/2019 8:10 AM SUPPLIER QUALITY): The patient's history and exam is consistent with a partial-thickness rotator cuff tear with impingement. After reviewing the treatment options she elected undergo a cortisone injection. She tolerated the procedure well. 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 Patient was advised to work on [id number] exercise the shoulder to help prevent a frozen shoulder. If she would like she was advised to call would be happy to arrange for formal physical therapy but typically the shot may be sufficient alone Degenerative disc disease, cervical 06/18/2018 Degenerative cervical spinal stenosis 06/18/2018 Encounter for long-term opiate analgesic use 10/2018 Sacroiliitis 06/04/2018 Cervicalgia 05/28/2018 Cervical radiculopathy 05/28/2018 CHF (congestive heart failure) ([facility]) 018 Assessment & Plan (04/09/2018 11:37 PM SUPPLIER QUALITY): New onset, unknown if it is diastolic or systolic or combined. Echo is pending. Cardiology has seen patient. Will start patient on Lasix IV 20 b.i.d., daily weights and strict I&Os. Will check bladder scan prior to Lasix to ensure patient does not have urinary retention. Leukocytosis 04/09/2018 Assessment & Plan (04/09/2018 11:30 PM SUPPLIER QUALITY): Exact etiology unclear, possibly related to steroid injection in the knee. Patient does not appear to have any infections. Lactate was 1.1. Will continue to monitor. Bipolar disorder 04/09/2018 Assessment & Plan (04/09/2018 11:28 PM SUPPLIER QUALITY): Will resume home medications Cigarette nicotine dependence without complicati on 04/09/2018 Assessment & Plan (04/09/2018 11:27 PM SUPPLIER QUALITY): Patient smokes 1 pack per day and has done so for over 45 years. Will order nicotine patch. Patient states she needs to quit smoking. Insomnia 04/09/2018 Assessment & Plan (04/09/2018 11:27 PM SUPPLIER QUALITY): Patient is on trazodone at night however as we will be diuresing patient will hold trazodone for now to prevent falls. Normocytic anemia 04/09/2018 Assessment & Plan (04/09/2018 11:26 PM SUPPLIER QUALITY): No baseline hemoglobin. Patient denies any bleeding. Will check FOBT and iron profile. Continue to monitor. Cervical spondylosis without myelopathy 09/11/19 HTN (hypertension) 09/07/2012 Hypercholesteremia 09/07/2012 Migraine 09/07/2012 Sprain and strain of shoulder and upper arm 08/26 Arthralgia of shoulder 04/27/2012 Elevated troponin I level Acute diastolic CHF (congestive heart failure) ( [facility]) Pneumonia of both lungs due to infectious organi sm Transaminitis NSTEMI (non-ST elevated myocardial infarction) ( [facility]) Leg swelling Bilateral pleural effusion Primary osteoarthritis of right shoulder Numbness and tingling of both upper extremities Surgical History Surgery Date Site/Laterality Comments HYSTERECTOMY KNEE SURGERY APPENDECTOMY JOINT REPLACEMENT 04/28/1993 - 04/27/1994 knee surger;y Medical History Medical History Date Comments Bipolar 1 disorder ([facility]) Insomnia Arthritis Asthma COPD (chronic obstructive pulmonary disease) ([facility]) Malignant hyperthermia CHF (congestive heart failure) ([facility]) ([facility]) 1 06/10/2017 Poor circulation Osteoarthritis Depression Rheumatoid arthritis ([facility]) Anemia Poor circulation Poor circulation HTN (hypertension) 09/07/2012 treated by pc p Bipolar disease, chronic ([facility]) ([facility]) GERD (gastroesophageal reflux disease) Osteoporosis Restless leg syndrome Family History Medical History Relation Name Comments Mental illness Brother Cancer Father COPD Mother Depression Mother Cancer Sister Arthritis Neg Hx Heart disease Neg Hx Hypertension Neg Hx Stroke Neg Hx Relation Name Status Comments Brother Father Mother Sister Social History Tobacco Use Types Packs/Day Years [...] on file Legal Sex Female 8:30 AM SUPPLIER QUALITY Gender Identity Not on file Sexual Orientation Not on file Obstetrics History Last Filed Vital Signs Vital Sign Reading Time Taken Comments Blood Pressure 137/88 04/08/2019 3:30 PM SUPPLIER QUALITY Pulse 99 04/08/2019 3:30 PM SUPPLIER QUALITY Temperature 37.7 C (99.8 F) 01/07/2019 4:09 PM CDT Respiratory Rate 20 04/08/2019 3:30 PM SUPPLIER QUALITY Oxygen Saturation 95% 04/08/2019 3:30 PM SUPPLIER QUALITY Inhaled Oxygen Concentration - - Weight 54.4 kg (120 lb) 05/04/2019 3:00 PM SUPPLIER QUALITY Height 162.6 cm (5' 4 ) 05/04/2019 3:00 PM SUPPLIER QUALITY Body Mass Index 20.6 05/04/2019 3:00 PM SUPPLIER QUALITY Plan of Treatment Not on file Goals Goal Patient Goal Type Associated Problems Recent Progress Patient-Stated? Author [facility] On track( 019 3:11 PM CDT) Yes Amalia Fenton, RN Note: Pt would like to be able to cook food and ride bike again Insurance [employer] H[employer] MEDICARE Advance Directives For more information, please contact: [phone] * Full Code (Latest Code Status on File) Date Activated Date Inactivated Comments 04/09/2018 3:21 PM 04/17/2018 2:27 PM Care Teams Pilot Fuel Engineer Relationship Specialty Start Date End Date Reynaldo Bravo MD PCP - General Emergency Medicine 07/01/22
[2024-06-11 23:44] LABS: Mean Corpuscular Volume 83.8 fl (80-100); Mean Platelet Volume 11.6 fl (7.4-10.4); Platelet Count Result 356 k/mm3 (150-375); Red Blood Count 3.46 M/mm3 (4.2-5.4); Red Cell Distribution Width 19.3 % (11.5-14.5)
[2024-06-11 23:58] LABS: Alanine Aminotransferase 56 U/L (6-35); Albumin Level 3.1 g/dL (3.5-5.1); Alkaline Phosphatase 106 U/L (38-126); Anion Gap 6 mmol/L (4-12); Aspartate Amino Transferase 39 U/L (14-36); Bilirubin,Total 0.7 mg/dL (0.2-1.3); Blood Urea Nitrogen 19 mg/dL (7-17); Calcium 8.1 mg/dL (8.4-10.2); Carbon Dioxide 32 mmol/L (22-30); Chloride 100 mmol/L (98-107); Estimated CRCL calculation 64 ml/min; Estimated Glomerular Filt Rate > 60; Glucose 86 mg/dL (65-110); Potassium 3.5 mmol/L (3.4-5.0); Sodium 138 mmol/L (137-145)
[2024-06-12] VITALS (15 sets, daily range): BP systolic 115–170; BP diastolic 65–89; PULSE 77–113; RESP 16–22; TEMP 35.8–36.5; O2SAT 92–100; BMI 25.6
[2024-06-12] LABS: INR 1.5; Prothrombin Time 18.4 Seconds (11.1-14.7)
[2024-06-12 00:01] LABS: Partial Thromboplastin Time 34.5 Seconds (22.3-36.8)
[2024-06-12] MEDS: SODIUM CHLORIDE 0.9% IV 500 ML 999 ML IV CONT ×2 (00:04→01:22)
[2024-06-12 00:05] LABS: Band Neutrophils Percent 1 % (0-6); Eosinophils Absolute Manual 0.19 K/mm3 (0.02-0.50); Eosinophils Percent Manual 1 % (0-4); Lymphocytes Absolute Manual 3.23 K/mm3 (1.1-4.5); Monocytes Absolute Manual 2.09 K/mm3 (0.1-0.90); Monocytes Percent Manual 11 % (3-9); Neutrophils Absolute Manual 13.49 K/mm3 (1.7-7.2); Neutrophils Percent Manual 70 % (46-73); Platelet Estimate Adequate (Adequate); Total Cells Counted 100
[2024-06-12 00:06] LABS: Anisocytosis 1+; Hypochromasia 2+; Ovalocytes 1+; Poikilocytosis 1+; Schistocytes None Seen; Target Cells 1+
[2024-06-12 00:07] LABS: Smudge Cells PRESENT
[2024-06-12 00:09] LABS: NT Pro B Type Natriuretic Pept 2180 pg/mL (19.9-100); Troponin I 0.017 ng/mL (0.000-0.034)
[2024-06-12 00:19] LABS: Influenza A QL RT-PCR Negative (Negative); Influenza B QL RT-PCR Negative (Negative); RSV RNA, RT-PCR Negative (Negative); SARS-CoV-2 RNA PCR Positive (Negative)
[2024-06-12 00:32] LABS: Magnesium 2.1 mg/dL (1.6-2.3)
[2024-06-12 01:26] LABS: Add Urine Microscopic? YES; Appearance Urine Clear (Clear); Bacteria Urine None Seen /hpf; Bilirubin Urine Negative (Negative); Blood Urine Negative (Negative); Color Urine Yellow (Yellow); Glucose Urine UA Negative (Negative); Ketones Urine Negative (Negative); Leukocyte Esterase Ur Negative LEU/UL (Negative); Need Manual Microscopic Reviewed; Nitrate Urine Negative (Negative); Non Pathogenic Casts 0-2; Protein Urine Trace mg/dL (Negative); Specific Grav Ur 1.019 (1.001-1.035); Squamous Epithelial Cell Urine None Seen /hpf (Few); WBC Urine 0-5 /hpf (0-3)
--- NOTE | 2024-06-12 01:38 | PC.NURSE ---
This RN spoke Beverly from [facility] to give her update on pt at 0128.
[2024-06-12] MEDS: dexAMETHasone SOD PHOS INJ 10 MG/ML 1 ML VIAL 6 MG IV PUSH (02:03)
[2024-06-12] MEDS: DOXYCYCLINE 100 MG/NS 100 ML 100 MG/100 ML BAG IVPB ×2 (02:03→13:21)
[2024-06-12 02:58] LABS: Troponin I 0.016 ng/mL (0.000-0.034)
[2024-06-12] MEDS: REMDESIVIR 200 MG/NS 250 ML 200 MG/250 ML BAG 250 MG IVPB (03:17)
[2024-06-12 06:56] LABS: Troponin I 0.013 ng/mL (0.000-0.034)
--- NOTE | 2024-06-12 08:10 | PC.NURSE ---
Pt. incontinent of urine. Dirty depend removed, nish care performed with soap and water, linens changed, clean depend applied and pt. repositioned in bed.
--- NOTE | 2024-06-12 09:20 | ADMGEN ---
This patient, Lissette Hawk, was admitted to [facility] Surg Room 326-01. Patient/family oriented to hospital policies and general routines including ID bracelet, bed and alarms, visiting hours, pain management, procedures, bathroom and other care routines, personal items, smoking policy, room service/diet, and visiting hours. Information on how to activate the Rapid Response Team has been discussed. Patient/Family are encouraged to report perceived risks to care and to ask questions if they do not understand what they are told or what they should do.
--- NOTE | 2024-06-12 09:39 | P.HP_ITS ---
H&P: HPI History of Present Illness Date/Time: 06/12/24 09:39 Chief Complaint: SOB Narrative: Patient is a 68 y/o female resident of [facility] with PMH of AFIB on Eliquis/amiodarone/diltiazem, dementia, bipolar disorder was sent to ER for evaluation of a unwitnessed fall at PA> Per PA report, patient is A&O X2 at baseline. Had an unwitnessed fall in the bathroom today. They believe she hit her head on the toilet. Unknown LOC. Patient has no complaints. Sent here for further evaluation. Patient denies any pain. Per ems report, patient was found to be hypoxic on RA upon their arrival down to 87%. She was placed on 2L NC. No previous O2 requirement. Was diagnosed with Covid 19 2 days ago. No Fever, no chills. No abdominal pain or nausea. Review of Systems Review of Systems: All systems reviewed & are unremarkable except as noted in HPI and below (the history and physical examination.) FOR[facility]LY [facility], [facility] Past Medical History Medical History (Updated 06/12/24 @ 10:06 by Doc Laird MD) Atrial fibrillation Essential (primary) hypertension Bipolar depression Dementia Family History Family History Sibling Family history of suicide, Onset Age: 36 Family history of elevated blood lipids Family history of malignant neoplasm of ovary, Onset Age: 35 Patient's brother is Mother Family history of transient ischemic attacks, Onset Age: 73 Patient's mother is Father Family history of malignant neoplasm, Onset Age: 57 Patient's father is Other Family history of arthritis Social History Social History Years smoked: 50 Smoking status: Current every day smoker Second hand tobacco smoke exposure: Yes Alcohol intake: unknown Substance use: never Living arrangements: alone Spiritual care concerns: No Meds Home Medications and Allergies Home Medications ?Medication ?Instructions ?Recorded ?Confirmed ?Type amiodarone 200 mg tablet 200 mg PO DAILY 10/24/23 06/12/24 History atorvastatin 40 mg tablet (Lipitor) 40 mg PO HS 10/24/23 06/12/24 History diltiazem HCl 180 mg 180 mg PO DAILY 10/24/23 06/12/24 History capsule,extended release 24 hr furosemide 40 mg tablet 40 mg PO DAILY 10/24/23 06/12/24 History losartan 25 mg tablet 25 mg PO DAILY 10/24/23 06/12/24 History alprazolam 0.25 mg tablet 0.5 mg PO BID anxiety 06/12/24 06/12/24 History apixaban 5 mg tablet 5 mg PO Q12H 06/12/24 06/12/24 History diclofenac sodium 1 % topical gel 2 g topical QID PRN pain 06/12/24 06/12/24 History (Arthritis Pain (diclofenac)) fluoxetine 10 mg capsule 10 mg PO DAILY 06/12/24 06/12/24 History fluoxetine 20 mg capsule 20 mg PO DAILY 06/12/24 06/12/24 History meloxicam 7.5 mg tablet 7.5 mg PO DAILY 06/12/24 06/12/24 History tramadol 50 mg tablet 50 mg PO BID PRN pain 06/12/24 06/12/24 History Allergies Allergy/AdvReac Type Severity Reaction Status Date / Time No Known Allergies Allergy Unverified 10/24/23 09:32 Vital Signs Vital Signs - 24 hr 06/11/24 21:41 06/11/24 21:42 06/11/24 21:54 Temperature 36.0 C L Pulse Rate 84 84 Respiratory Rate 23 H 20 22 H Blood Pressure 113/80 113/80 Pulse Oximetry 97 97 Oxygen Delivery Nasal Cannula Oxygen Flow Rate 2 06/11/24 22:01 06/11/24 22:38 06/11/24 22:45 Temperature Pulse Rate 97 105 H 105 H Respiratory Rate 23 H 22 H 23 H Blood Pressure 103/82 120/83 119/83 Pulse Oximetry 100 94 98 Oxygen Delivery Oxygen Flow Rate 06/11/24 23:00 06/11/24 23:15 06/11/24 23:45 Temperature Pulse Rate 105 H 105 H 106 H Respiratory Rate 20 20 23 H Blood Pressure 120/83 131/84 130/93 H Pulse Oximetry 98 97 97 Oxygen Delivery Oxygen Flow Rate 06/12/24 00:05 06/12/24 00:31 06/12/24 01:31 Temperature Pulse Rate 106 H 108 H 87 Respiratory Rate 21 H 22 H 18 Blood Pressure 129/81 170/89 H 115/65 Pulse Oximetry 99 98 98 Oxygen Delivery Oxygen Flow Rate 06/12/24 01:45 06/12/24 06:22 06/12/24 07:16 Temperature Pulse Rate 92 106 H 108 H Respiratory Rate 19 18 18 Blood Pressure 123/73 128/83 133/87 Pulse Oximetry 97 93 99 Oxygen Delivery Oxygen Flow Rate 06/12/24 08:05 06/12/24 08:07 Temperature Pulse Rate Respiratory Rate Blood Pressure Pulse Oximetry 92 96 Oxygen Delivery Room Air Nasal Cannula Oxygen Flow Rate 2 Exam Narrative: GENERAL: Appears older than stated age, thin, non-toxic, in no acute distress. HEAD: Normocephalic, atraumatic. No wounds. EYES: Eyes are matted shut with yellow/brown crusted material ENT: Edentulous. MMs slightly dry. RESPIRATORY: Airway patent, respirations nonlabored but mildly tachypneic. Rhonchi in bases bilaterally. No appreciable wheezing. CARDIOVASCULAR: Regular rate with irregular rhythm without murmurs, rubs, or gallops. ABDOMINAL: Soft, no appreciable tenderness, nondistended. Normoactive BS. MUSCULOSKELETAL: No gross deformities. No significant peripheral edema. SKIN: Warm, dry, normal color. NEURO: Alert, but somewhat somnolent. Answers some questions. Speech clear. No ataxic movements. No appreciable focal deficits. PSYCHIATRIC: Normal interaction. H&P: Results Labs Labs: Short CBC 06/11/24 Range/Units 23:33 WBC 19.0 H (4.5-10.0) K/mm3 Hgb 9.0 L (12.0-15.0) g/dL Hct 29.0 L (37.0-47.0) % Plt Count 356 (150-375) k/mm3 [facility] 06/11/24 23:33 Sodium 138 Potassium 3.5 Chloride 100 Carbon Dioxide 32 H BUN 19 H Creatinine 0.57 L Glucose 86 Calcium 8.1 L Cardiac Enzymes 06/11/24 06/12/24 06/12/24 Range/Units 23:33 02:32 06:24 Troponin I 0.017 0.016 0.013 (0.000-0.034) ng/mL Liver Function 06/11/24 Range/Units 23:33 Total Bilirubin 0.7 (0.2-1.3) mg/dL AST 39 H (14-36) U/L ALT 56 H (6-35) U/L Alkaline Phosphatase 106 (38-126) U/L Albumin 3.1 L (3.5-5.1) g/dL Urine 06/12/24 Range/Units 01:11 Urine Color Yellow (Yellow) Urine Appearance Clear (Clear) Urine pH 7.0 (5.0-9.0) Ur Specific [place] 1.019 (1.001-1.035) Urine Protein Trace (Negative) mg/dL Urine Glucose (UA) Negative (Negative) mg/dL Assessment and Plan Assessment and plan (1) COVID-19: Code(s): U07.1 - COVID-19 Status: Acute Assessment and Plan: IV antibiotics, remdesivir, Steroids and oxygen. (2) Bipolar depression: Code(s): F31.9 - Bipolar disorder, unspecified Status: Acute Assessment and Plan: Stable on current medications, continue current treatment. (3) Acute hypoxic respiratory failure: Code(s): J96.01 - Acute respiratory failure with hypoxia Status: Acute Assessment and Plan: will continue with oxygen, IV steroids and IV antibiotic. (4) Essential (primary) hypertension: Code(s): I10 - Essential (primary) hypertension Status: Acute Assessment and Plan: Stable on current medications, continue current treatmen (5) Fall from ground level: Code(s): W18.30XA - Fall on same level, unspecified, initial encounter Status: Acute Assessment and Plan: workup negative so far. Will start physical therapy. Possible cause maybe hypoxia from COVID. (6) Dementia: Code(s): F03.90 - Unspecified dementia, unspecified severity, without behavioral disturbance, psychotic disturbance, mood disturbance, and anxiety Status: Acute Assessment and Plan: Stable on current medications, continue current treatmen Plan Patient is DNR. DVT prophylaxis Eliquis. Patient is admitted as full admission. Quality VTE Prophylaxis VTE prophylaxis: pharmacologic ordered
[2024-06-12] MEDS: AMIODARONE HCL 200 MG TABLET PO (10:11)
[2024-06-12] MEDS: traMADol HCL (*CRX) 50 MG TABLET PO ×2 (10:11→16:08)
[2024-06-12] MEDS: APIXABAN 5 MG TABLET PO ×2 (10:11→21:08)
[2024-06-12] MEDS: FUROSEMIDE 40 MG TABLET PO (10:11)
[2024-06-12] MEDS: MELOXICAM 7.5 MG TABLET PO (10:11)
[2024-06-12] MEDS: ALPRAZolam (*CRX) 0.5 MG TABLET PO ×2 (10:11→16:08)
[2024-06-12] MEDS: FLUoxetine HCL 20 MG CAPSULE PO (10:12)
[2024-06-12] MEDS: LOSARTAN POTASSIUM 25 MG TABLET PO (10:12)
[2024-06-12] MEDS: FLUoxetine HCL 10 MG CAPSULE PO (10:12)
[2024-06-12] MEDS: dilTIAZem HCL CD 180 MG CAP.24HR PO (10:12)
[2024-06-12] MEDS: HALOPERIDOL LACTATE 5 MG/ML VIAL 10 MG IM (17:02)
[2024-06-12] MEDS: ATORVASTATIN 40 MG TABLET PO (21:08)
[2024-06-12] MEDS: REMDESIVIR 100 MG/NS 250 ML 100 MG/250 ML BAG 250 MG IVPB (23:48)
[2024-06-13] MEDS: DOXYCYCLINE 100 MG/NS 100 ML 100 MG/100 ML BAG IVPB ×2 (02:50→13:10)
[2024-06-13] MEDS: dexAMETHasone SOD PHOS INJ 10 MG/ML 1 ML VIAL 6 MG IV PUSH (03:14)
[2024-06-13 06:00] VITALS: BP 147/90; PULSE 114; RESP 20; TEMP 35.9; O2SAT 97
[2024-06-13] MEDS: traMADol HCL (*CRX) 50 MG TABLET PO (06:35)
[2024-06-13 06:42] LABS: Hematocrit 29.6 % (37.0-47.0); Hemoglobin 9.1 g/dL (12.0-15.0); Mean Corpuscular HGB Conc 30.7 g/dl (32-36); Mean Corpuscular Hemoglobin 26.3 pg (26-34); Mean Corpuscular Volume 85.5 fl (80-100); Mean Platelet Volume 12.2 fl (7.4-10.4); Platelet Count Result 368 k/mm3 (150-375); Red Blood Count 3.46 M/mm3 (4.2-5.4); Red Cell Distribution Width 19.5 % (11.5-14.5); White Blood Count 13.6 K/mm3 (4.5-10.0)
[2024-06-13 06:54] LABS: Alanine Aminotransferase 59 U/L (6-35); Alkaline Phosphatase 111 U/L (38-126); Anion Gap 7 mmol/L (4-12); Aspartate Amino Transferase 40 U/L (14-36); Bilirubin,Total 0.6 mg/dL (0.2-1.3); Blood Urea Nitrogen 23 mg/dL (7-17); Calcium 8.3 mg/dL (8.4-10.2); Carbon Dioxide 29 mmol/L (22-30); Chloride 103 mmol/L (98-107); Estimated CRCL calculation 61 ml/min; Estimated Glomerular Filt Rate > 60; Glucose 113 mg/dL (65-110); Sodium 139 mmol/L (137-145)
[2024-06-13] MEDS: FLUoxetine HCL 20 MG CAPSULE PO (08:27)
[2024-06-13] MEDS: MELOXICAM 7.5 MG TABLET PO (08:27)
[2024-06-13] MEDS: FUROSEMIDE 40 MG TABLET PO (08:27)
[2024-06-13] MEDS: ALPRAZolam (*CRX) 0.5 MG TABLET PO ×2 (08:27→16:08)
[2024-06-13] MEDS: LOSARTAN POTASSIUM 25 MG TABLET PO (08:27)
[2024-06-13] MEDS: dilTIAZem HCL CD 180 MG CAP.24HR PO (08:27)
[2024-06-13] MEDS: AMIODARONE HCL 200 MG TABLET PO (08:27)
[2024-06-13] MEDS: APIXABAN 5 MG TABLET PO ×2 (08:27→21:02)
[2024-06-13] MEDS: FLUoxetine HCL 10 MG CAPSULE PO (08:32)
--- NOTE | 2024-06-13 09:47 | PM.IMPN ---
Progress Note: A&P Assessment and Plan (1) COVID-19: Code(s): U07.1 - COVID-19 Status: Acute Assessment and Plan: IV antibiotics, remdesivir, Steroids and oxygen. (2) Bipolar depression: Code(s): F31.9 - Bipolar disorder, unspecified Status: Acute Assessment and Plan: Stable on current medications, continue current treatment. (3) Acute hypoxic respiratory failure: Code(s): J96.01 - Acute respiratory failure with hypoxia Status: Acute Assessment and Plan: will continue with oxygen, IV steroids and IV antibiotic. (4) Essential (primary) hypertension: Code(s): I10 - Essential (primary) hypertension Status: Acute Assessment and Plan: Stable on current medications, continue current treatmen (5) Fall from ground level: Code(s): W18.30XA - Fall on same level, unspecified, initial encounter Status: Acute Assessment and Plan: workup negative so far. Will start physical therapy. Possible cause maybe hypoxia from COVID. (6) Dementia: Code(s): F03.90 - Unspecified dementia, unspecified severity, without behavioral disturbance, psychotic disturbance, mood disturbance, and anxiety Status: Acute Assessment and Plan: Stable on current medications, continue current treatmen Plan Patient is DNR. DVT prophylaxis Eliquis. Patient is admitted as full admission. Subjective Date/time seen: 06/13/24 09:47 Interval history: Patient was admitted for COVID-19 and possible pneumonia. Patient was seen during the morning rounds today. Patient is feeling slightly better. Mild shortness of breath. No chest pain. No abdominal pain, nausea, no vomiting. Mood stable. Review of Systems Review of Systems: All systems reviewed & are unremarkable except as noted in HPI and below (the history and physical examination.) Exam Narrative: GENERAL: Appears older than stated age, thin, non-toxic, in no acute distress. HEAD: Normocephalic, atraumatic. No wounds. EYES: Eyes are matted shut with yellow/brown crusted material ENT: Edentulous. MMs slightly dry. RESPIRATORY: Airway patent, respirations nonlabored but mildly tachypneic. Rhonchi in bases bilaterally. No appreciable wheezing. CARDIOVASCULAR: Regular rate with irregular rhythm without murmurs, rubs, or gallops. ABDOMINAL: Soft, no appreciable tenderness, nondistended. Normoactive BS. MUSCULOSKELETAL: No gross deformities. No significant peripheral edema. SKIN: Warm, dry, normal color. NEURO: Alert, but somewhat somnolent. Answers some questions. Speech clear. No ataxic movements. No appreciable focal deficits. PSYCHIATRIC: Normal interaction. Objective Data Vital Signs Vital Signs: Vital Signs - 24 hr 06/12/24 10:11 06/12/24 10:24 06/12/24 14:40 Temperature 36.4 C Pulse Rate 108 H 110 H Respiratory Rate 18 Blood Pressure 117/75 Pulse Oximetry 96 94 Oxygen Delivery Nasal Cannula Oxygen Flow Rate 2 06/12/24 16:25 06/12/24 16:54 06/12/24 17:54 Temperature 36.5 C Pulse Rate 113 H Respiratory Rate 16 20 Blood Pressure 119/73 Pulse Oximetry 93 100 Oxygen Delivery Room Air Oxygen Flow Rate 06/12/24 21:59 06/13/24 06:00 06/13/24 08:00 Temperature 35.8 C L 35.9 C L Pulse Rate 77 114 H Respiratory Rate 16 20 Blood Pressure 132/76 147/90 H Pulse Oximetry 93 97 Oxygen Delivery Room Air Oxygen Flow Rate Intake/Output Intake/Output: Intake & Output 06/10/24 06/11/24 06/12/24 06/13/24 23:59 23:59 23:59 23:59 Intake Total 2540 220 Output Total 700 Balance 1840 220 Meds/Results Medications: Active Medications Generic Name Dose Route Start Last Admin Trade Name Freq PRN Reason Stop Dose Admin Acetaminophen 650 mg 06/12/24 01:42 Acetaminophen 325 Mg Tablet PO Q4H PRN Mild Pain (1-3) or Fever Alprazolam 0.5 mg 06/12/24 09:00 06/13/24 08:27 Alprazolam (*Crx) 0.5 Mg Tablet PO 0.5 mg BID [facility] Administration Amiodarone HCl 200 mg 06/12/24 09:55 06/13/24 08:27 Amiodarone Hcl 200 Mg Tablet PO 200 mg DAILY [facility] Administration Apixaban 5 mg 06/12/24 09:40 06/13/24 08:27 Apixaban 5 Mg Tablet PO 5 mg Q12HR [facility] Administration Atorvastatin Calcium 40 mg 06/12/24 21:00 06/12/24 21:08 Atorvastatin 40 Mg Tablet PO 40 mg HS [facility] Administration Dexamethasone Sodium Phosphate 6 mg 06/13/24 02:00 06/13/24 03:14 Dexamethasone Sod Phos Inj 10 Mg/Ml 1 Ml Vial IV PUSH 06/21/24 02:01 6 mg DAILY@0200 [facility] Administration Dextrose 12.5 gm 06/12/24 01:42 Dextrose 50% 25 Gm/50 Ml Syringe IV PUSH PRN PRN Hypoglycemia Protocol Diclofenac Sodium 1 applic 06/12/24 09:37 Diclofenac Sodium 1% 100 Gm Gel (*Bkc) TOPICAL QID PRN pain Diltiazem HCl 180 mg 06/12/24 09:55 06/13/24 08:27 Diltiazem Hcl Cd 180 Mg Cap.24hr PO 180 mg DAILY [facility] Administration Fluoxetine HCl 10 mg 06/12/24 09:55 06/13/24 08:32 Fluoxetine Hcl 10 Mg Capsule PO 10 mg DAILY [facility] Administration Fluoxetine HCl 20 mg 06/12/24 09:55 06/13/24 08:27 Fluoxetine Hcl 20 Mg Capsule PO 20 mg DAILY [facility] Administration Furosemide 40 mg 06/12/24 09:55 06/13/24 08:27 Furosemide 40 Mg Tablet PO 40 mg DAILY [facility] Administration Glucagon 1 mg 06/12/24 01:42 Glucagon For Inj 1 Mg Vial IM PRN PRN Hypoglycemia Protocol Glucose 15 gm 06/12/24 01:42 Glucose Oral Gel 15 Gm Of Glucse In 37.5 Gm Tube PO PRN PRN Hypoglycemia Protocol Ceftriaxone Sodium 1 gm in 50 mls @ 100 mls/hr 06/12/24 22:00 06/12/24 21:38 Rocephin 1 Gm/Ns 50 Ml IVPB 06/15/24 22:29 Infused Q24H [facility] Infusion Doxycycline Hyclate 100 mg in 100 mls @ 100 mls/hr 06/12/24 14:00 06/13/24 03:50 Vibramycin 100 Mg/Ns 100 Ml IVPB Infused Q12H [facility] Infusion Remdesivir 100 mg in 250 mls @ 250 mls/hr 06/12/24 22:00 06/12/24 23:48 IVPB 06/15/24 22:59 250 mls/hr Q24H [facility] Administration Dextrose 1,000 mls @ 100 mls/hr 06/12/24 01:42 Dextrose 5% 1,000 Ml IVPB PRN PRN Hypoglycemia Protocol Losartan Potassium 25 mg 06/12/24 09:55 06/13/24 08:27 Losartan Potassium 25 Mg Tablet PO 25 mg DAILY [facility] Administration Meloxicam 7.5 mg 06/12/24 09:55 06/13/24 08:27 Meloxicam 7.5 Mg Tablet PO 7.5 mg DAILY [facility] Administration Ondansetron HCl 4 mg 06/12/24 01:42 Ondansetron Inj 4 Mg/2 Ml Vial IV PUSH Q4H PRN Nausea Tramadol HCl 50 mg 06/12/24 09:37 06/13/24 06:35 Tramadol Hcl (*Crx) 50 Mg Tablet PO 50 mg BID PRN Administration pain 4 -6 Radiology Results: ITS Impressions Head CT 06/11/24 22:28 Impression: No acute intracranial hemorrhage or suspicious mass effect. Inflammatory sinus disease. Cervical Spine CT 06/11/24 22:30 Impression: Significant degenerative disease with 4.5 mm of anterolisthesis of C3 onto C4, an interval change from 2009, age indeterminate. Noncontrast enhanced MRI of the cervical spine may be performed for determination of the acuity. Hip/Pelvis X-Ray 06/11/24 22:39 IMPRESSION: Significant degenerative disease, without acute fracture. Chest X-Ray 06/13/24 07:24 IMPRESSION: Mild pulmonary vascular congestion with a right mid to lower lobe infiltrate Labs Labs: Laboratory Results - last 24 hr 06/13/24 06:05 WBC 13.6 H RBC 3.46 L Hgb 9.1 L Hct 29.6 L MCV 85.5 MCH 26.3 MCHC 30.7 L RDW 19.5 H Plt Count 368 MPV 12.2 H Sodium 139 Potassium 4.0 Chloride 103 Carbon Dioxide 29 Anion Gap 7 BUN 23 H Creatinine 0.60 L Estim Creat Clear Calc 61 Estimated GFR > 60 Glucose 113 H Calcium 8.3 L Total Bilirubin 0.6 AST 40 H ALT 59 H Alkaline Phosphatase 111 Total Protein 7.0 Albumin 3.0 L Quality VTE Prophylaxis VTE prophylaxis: pharmacologic ordered
[2024-06-13] MEDS: HALOPERIDOL LACTATE 5 MG/ML VIAL IM (11:19)
[2024-06-13 15:59] VITALS: BP 128/70; PULSE 110; RESP 18; TEMP 36.2; O2SAT 90
[2024-06-13] MEDS: ATORVASTATIN 40 MG TABLET PO (21:02)
[2024-06-13] MEDS: REMDESIVIR 100 MG/NS 250 ML 100 MG/250 ML BAG 250 MG IVPB (21:30)
[2024-06-13 22:00] VITALS: BP 148/64; PULSE 112; RESP 20; TEMP 36.1; O2SAT 95
[2024-06-14] MEDS: DOXYCYCLINE 100 MG/NS 100 ML 100 MG/100 ML BAG IVPB ×2 (02:12→14:14)
[2024-06-14] MEDS: dexAMETHasone SOD PHOS INJ 10 MG/ML 1 ML VIAL 6 MG IV PUSH (02:15)
[2024-06-14] MEDS: traMADol HCL (*CRX) 50 MG TABLET PO ×3 (03:12→21:11)
[2024-06-14 06:00] VITALS: BP 146/91; PULSE 84; RESP 18; TEMP 35.9; O2SAT 93
[2024-06-14 06:52] LABS: Hematocrit 30.8 % (37.0-47.0); Hemoglobin 9.6 g/dL (12.0-15.0); Mean Corpuscular HGB Conc 31.2 g/dl (32-36); Mean Corpuscular Volume 86.5 fl (80-100); Platelet Count Result 429 k/mm3 (150-375); Red Blood Count 3.56 M/mm3 (4.2-5.4); Red Cell Distribution Width 20.2 % (11.5-14.5); White Blood Count 16.9 K/mm3 (4.5-10.0)
[2024-06-14 07:01] LABS: Alanine Aminotransferase 62 U/L (6-35); Albumin Level 3.2 g/dL (3.5-5.1); Alkaline Phosphatase 116 U/L (38-126); Anion Gap 8 mmol/L (4-12); Aspartate Amino Transferase 39 U/L (14-36); Bilirubin,Total 0.6 mg/dL (0.2-1.3); Blood Urea Nitrogen 21 mg/dL (7-17); Calcium 8.3 mg/dL (8.4-10.2); Carbon Dioxide 29 mmol/L (22-30); Chloride 104 mmol/L (98-107); Estimated CRCL calculation 65 ml/min; Estimated Glomerular Filt Rate > 60; Glucose 105 mg/dL (65-110); Potassium 3.9 mmol/L (3.4-5.0); Sodium 141 mmol/L (137-145)
[2024-06-14] MEDS: dilTIAZem HCL CD 180 MG CAP.24HR PO (09:38)
[2024-06-14] MEDS: ALPRAZolam (*CRX) 0.5 MG TABLET PO ×2 (09:38→17:05)
[2024-06-14 09:39] VITALS: PULSE 84
[2024-06-14] MEDS: MELOXICAM 7.5 MG TABLET PO (09:39)
[2024-06-14] MEDS: AMIODARONE HCL 200 MG TABLET PO (09:39)
[2024-06-14] MEDS: FLUoxetine HCL 10 MG CAPSULE PO (09:39)
[2024-06-14] MEDS: LOSARTAN POTASSIUM 25 MG TABLET PO (09:39)
[2024-06-14] MEDS: FUROSEMIDE 40 MG TABLET PO (09:40)
[2024-06-14] MEDS: FLUoxetine HCL 20 MG CAPSULE PO (09:40)
[2024-06-14] MEDS: APIXABAN 5 MG TABLET PO ×2 (09:40→21:11)
--- NOTE | 2024-06-14 11:46 | PM.IMPN ---
Progress Note: A&P Assessment and Plan (1) COVID-19: Code(s): U07.1 - COVID-19 Status: Acute Assessment and Plan: IV antibiotics, remdesivir, Steroids and oxygen. (2) Bipolar depression: Code(s): F31.9 - Bipolar disorder, unspecified Status: Acute Assessment and Plan: Stable on current medications, continue current treatment. (3) Acute hypoxic respiratory failure: Code(s): J96.01 - Acute respiratory failure with hypoxia Status: Acute Assessment and Plan: will continue with oxygen, IV steroids and IV antibiotic. (4) Essential (primary) hypertension: Code(s): I10 - Essential (primary) hypertension Status: Acute Assessment and Plan: reviewed and stable continue current treatment (5) Fall from ground level: Code(s): W18.30XA - Fall on same level, unspecified, initial encounter Status: Acute Assessment and Plan: workup negative so far. Possible cause maybe hypoxia from COVID. PT/OT (6) Dementia: Code(s): F03.90 - Unspecified dementia, unspecified severity, without behavioral disturbance, psychotic disturbance, mood disturbance, and anxiety Status: Acute Assessment and Plan: Stable on current medications, continue current treatmen Plan Patient is DNR. DVT prophylaxis Eliquis. Patient is admitted as full admission. Time Spent With Patient Time with patient: 25 - 35 minutes Subjective Date/time seen: 06/14/24 11:46 Interval history: Patient is here for COVID-19 and possible pneumonia. Assuming care. Pt is seen and examined. Patient is feeling slightly better. Mild shortness of breath. Denies chest pain. No abdominal pain, nausea, no vomiting. eating and drinking ok. major concern is anxiety. she is on taking xanax but still very anxious Review of Systems Review of Systems: All systems reviewed & are unremarkable except as noted in HPI and below (the history and physical examination.) Exam Narrative: GENERAL: Appears older than stated age, thin, non-toxic, in no acute distress. HEAD: Normocephalic, atraumatic. No wounds. EYES: Eyes are matted shut with yellow/brown crusted material ENT: Edentulous. MMs slightly dry. RESPIRATORY: Airway patent, respirations nonlabored but mildly tachypneic. Rhonchi in bases bilaterally. No appreciable wheezing. CARDIOVASCULAR: Regular rate with irregular rhythm without murmurs, rubs, or gallops. ABDOMINAL: Soft, no appreciable tenderness, nondistended. Normoactive BS. MUSCULOSKELETAL: No gross deformities. No significant peripheral edema. SKIN: Warm, dry, normal color. NEURO: Alert, but somewhat somnolent. Answers some questions. Speech clear. No ataxic movements. No appreciable focal deficits. PSYCHIATRIC: Normal interaction. Objective Data Vital Signs Vital Signs: Vital Signs - 24 hr 06/13/24 15:59 06/13/24 22:00 06/14/24 06:00 Temperature 97.2 F L 97.0 F L 96.6 F L Pulse Rate 110 H 112 H 84 Respiratory Rate 18 20 18 Blood Pressure 128/70 148/64 H 146/91 H Pulse Oximetry 90 95 93 06/14/24 09:39 Temperature Pulse Rate 84 Respiratory Rate Blood Pressure Pulse Oximetry Intake/Output Intake/Output: Intake & Output 06/11/24 06/12/24 06/13/24 06/14/24 23:59 23:59 23:59 23:59 Intake Total 2540 1625 240 Output Total 700 500 825 Balance 1840 1125 -585 Meds/Results Medications: Active Medications Generic Name Dose Route Start Last Admin Trade Name Freq PRN Reason Stop Dose Admin Acetaminophen 650 mg 06/12/24 01:42 Acetaminophen 325 Mg Tablet PO Q4H PRN Mild Pain (1-3) or Fever Alprazolam 0.5 mg 06/12/24 09:00 06/14/24 09:38 Alprazolam (*Crx) 0.5 Mg Tablet PO 0.5 mg BID [facility] Administration Amiodarone HCl 200 mg 06/12/24 09:55 06/14/24 09:39 Amiodarone Hcl 200 Mg Tablet PO 200 mg DAILY [facility] Administration Apixaban 5 mg 06/12/24 09:40 06/14/24 09:40 Apixaban 5 Mg Tablet PO 5 mg Q12HR [facility] Administration Atorvastatin Calcium 40 mg 06/12/24 21:00 06/13/24 21:02 Atorvastatin 40 Mg Tablet PO 40 mg HS [facility] Administration Dexamethasone Sodium Phosphate 6 mg 06/13/24 02:00 06/14/24 02:15 Dexamethasone Sod Phos Inj 10 Mg/Ml 1 Ml Vial IV PUSH 06/21/24 02:01 6 mg DAILY@0200 [facility] Administration Dextrose 12.5 gm 06/12/24 01:42 Dextrose 50% 25 Gm/50 Ml Syringe IV PUSH PRN PRN Hypoglycemia Protocol Diclofenac Sodium 1 applic 06/12/24 09:37 Diclofenac Sodium 1% 100 Gm Gel (*Bk) TOPICAL QID PRN pain Diltiazem HCl 180 mg 06/12/24 09:55 06/14/24 09:38 Diltiazem Hcl Cd 180 Mg Cap.24hr PO 180 mg DAILY [facility] Administration Fluoxetine HCl 10 mg 06/12/24 09:55 06/14/24 09:39 Fluoxetine Hcl 10 Mg Capsule PO 10 mg DAILY [facility] Administration Fluoxetine HCl 20 mg 06/12/24 09:55 06/14/24 09:40 Fluoxetine Hcl 20 Mg Capsule PO 20 mg DAILY [facility] Administration Furosemide 40 mg 06/12/24 09:55 06/14/24 09:40 Furosemide 40 Mg Tablet PO 40 mg DAILY [facility] Administration Glucagon 1 mg 06/12/24 01:42 Glucagon For Inj 1 Mg Vial IM PRN PRN Hypoglycemia Protocol Glucose 15 gm 06/12/24 01:42 Glucose Oral Gel 15 Gm Of Glucse In 37.5 Gm Tube PO PRN PRN Hypoglycemia Protocol Ceftriaxone Sodium 1 gm in 50 mls @ 100 mls/hr 06/12/24 22:00 06/13/24 21:35 Rocephin 1 Gm/Ns 50 Ml IVPB 06/15/24 22:29 Infused Q24H [facility] Infusion Doxycycline Hyclate 100 mg in 100 mls @ 100 mls/hr 06/12/24 14:00 06/14/24 02:12 Vibramycin 100 Mg/Ns 100 Ml IVPB 100 mls/hr Q12H [facility] Administration Remdesivir 100 mg in 250 mls @ 250 mls/hr 06/12/24 22:00 06/13/24 22:30 IVPB 06/15/24 22:59 Infused Q24H [facility] Infusion Dextrose 1,000 mls @ 100 mls/hr 06/12/24 01:42 Dextrose 5% 1,000 Ml IVPB PRN PRN Hypoglycemia Protocol Losartan Potassium 25 mg 06/12/24 09:55 06/14/24 09:39 Losartan Potassium 25 Mg Tablet PO 25 mg DAILY [facility] Administration Meloxicam 7.5 mg 06/12/24 09:55 06/14/24 09:39 Meloxicam 7.5 Mg Tablet PO 7.5 mg DAILY [facility] Administration Ondansetron HCl 4 mg 06/12/24 01:42 Ondansetron Inj 4 Mg/2 Ml Vial IV PUSH Q4H PRN Nausea Tramadol HCl 50 mg 06/12/24 09:37 06/14/24 09:46 Tramadol Hcl (*Crx) 50 Mg Tablet PO 50 mg BID PRN Administration pain 4 -6 Radiology Results: ITS Impressions Head CT 06/11/24 22:28 Impression: No acute intracranial hemorrhage or suspicious mass effect. Inflammatory sinus disease. Cervical Spine CT 06/11/24 22:30 Impression: Significant degenerative disease with 4.5 mm of anterolisthesis of C3 onto C4, an interval change from 2009, age indeterminate. Noncontrast enhanced MRI of the cervical spine may be performed for determination of the acuity. Hip/Pelvis X-Ray 06/11/24 22:39 IMPRESSION: Significant degenerative disease, without acute fracture. Chest X-Ray 06/14/24 08:26 IMPRESSION: 1. Persistent opacities in the bilateral lower lung zones which could represent atelectasis, pneumonia, mild pulmonary edema or some combination thereof. 2. Cardiomegaly. Labs Labs: Laboratory Results - last 24 hr 06/14/24 06:02 WBC 16.9 H RBC 3.56 L Hgb 9.6 L Hct 30.8 L MCV 86.5 MCH 27.0 MCHC 31.2 L RDW 20.2 H Plt Count 429 H MPV 12.0 H Sodium 141 Potassium 3.9 Chloride 104 Carbon Dioxide 29 Anion Gap 8 BUN 21 H Creatinine 0.56 L Estim Creat Clear Calc 65 Estimated GFR > 60 Glucose 105 Calcium 8.3 L Total Bilirubin 0.6 AST 39 H ALT 62 H Alkaline Phosphatase 116 Total Protein 7.0 Albumin 3.2 L Quality VTE Prophylaxis VTE prophylaxis: pharmacologic ordered
[2024-06-14 14:00] VITALS: BP 127/78; PULSE 77; RESP 20; TEMP 36.6; O2SAT 98
[2024-06-14] MEDS: ACETAMINOPHEN 325 MG TABLET 650 MG PO (14:24)
[2024-06-14] MEDS: REMDESIVIR 100 MG/NS 250 ML 100 MG/250 ML BAG 250 MG IVPB (21:10)
[2024-06-14] MEDS: busPIRone HCL 5 MG TABLET PO (21:11)
[2024-06-14] MEDS: ATORVASTATIN 40 MG TABLET PO (21:11)
[2024-06-14 21:50] VITALS: BP 150/94; PULSE 88; RESP 16; TEMP 36.3; O2SAT 95
[2024-06-15] MEDS: DOXYCYCLINE 100 MG/NS 100 ML 100 MG/100 ML BAG IVPB (02:31)
[2024-06-15] MEDS: dexAMETHasone SOD PHOS INJ 10 MG/ML 1 ML VIAL 6 MG IV PUSH (02:31)
[2024-06-15 05:51] VITALS: BP 135/79; PULSE 97; RESP 18; TEMP 36.6; O2SAT 93
[2024-06-15 08:00] VITALS: O2SAT 93
[2024-06-15] MEDS: ALPRAZolam (*CRX) 0.5 MG TABLET PO ×2 (08:16→16:28)
[2024-06-15 08:17] VITALS: PULSE 98
[2024-06-15] MEDS: AMIODARONE HCL 200 MG TABLET PO (08:17)
[2024-06-15] MEDS: dilTIAZem HCL CD 180 MG CAP.24HR PO (08:17)
[2024-06-15] MEDS: APIXABAN 5 MG TABLET PO ×2 (08:17→20:14)
[2024-06-15] MEDS: busPIRone HCL 5 MG TABLET PO ×2 (08:17→20:15)
[2024-06-15] MEDS: FLUoxetine HCL 10 MG CAPSULE PO (08:17)
[2024-06-15] MEDS: FLUoxetine HCL 20 MG CAPSULE PO (08:18)
[2024-06-15] MEDS: MELOXICAM 7.5 MG TABLET PO (08:18)
[2024-06-15] MEDS: LOSARTAN POTASSIUM 25 MG TABLET PO (08:18)
[2024-06-15] MEDS: FUROSEMIDE 40 MG TABLET PO (08:18)
[2024-06-15] MEDS: DOXYCYCLINE HYCLATE 100 MG TABLET PO ×2 (12:17→20:14)
[2024-06-15 14:00] VITALS: BP 129/69; PULSE 81; RESP 18; TEMP 36.6; O2SAT 93
--- NOTE | 2024-06-15 14:33 | PM.IMPN ---
Progress Note: A&P Assessment and Plan (1) COVID-19: Code(s): U07.1 - COVID-19 Status: Acute Assessment and Plan: IV antibiotics (ceftriaxone- end date- 06/15 2199), remdesivir, Steroids and oxygen. wbc elevated - but on steroids- end dats 06/20 2099 (2) Bipolar depression: Code(s): F31.9 - Bipolar disorder, unspecified Status: Acute Assessment and Plan: Stable on current medications, continue current treatment. (3) Acute hypoxic respiratory failure: Code(s): J96.01 - Acute respiratory failure with hypoxia Status: Acute Assessment and Plan: will continue with oxygen, IV steroids and IV antibiotic. (4) Essential (primary) hypertension: Code(s): I10 - Essential (primary) hypertension Status: Acute Assessment and Plan: reviewed and stable continue current treatment (5) Fall from ground level: Code(s): W18.30XA - Fall on same level, unspecified, initial encounter Status: Acute Assessment and Plan: workup negative so far. Possible cause maybe hypoxia from COVID. PT/OT (6) Dementia: Code(s): F03.90 - Unspecified dementia, unspecified severity, without behavioral disturbance, psychotic disturbance, mood disturbance, and anxiety Status: Acute Assessment and Plan: Stable on current medications, continue current treatmen Plan Patient is DNR. DVT prophylaxis Eliquis- high fall and bleeding risk Patient is admitted as full admission. Time Spent With Patient Time with patient: 25 - 35 minutes Subjective Date/time seen: 06/15/24 14:33 Interval history: Patient is here for COVID-19 and possible pneumonia. still confused but better today, more calm Review of Systems Review of Systems: All systems reviewed & are unremarkable except as noted in HPI and below (the history and physical examination.) Exam Narrative: GENERAL: Appears older than stated age, thin, non-toxic, in no acute distress. HEAD: Normocephalic, atraumatic. No wounds. EYES: Eyes are matted shut with yellow/brown crusted material ENT: Edentulous. MMs slightly dry. RESPIRATORY: Airway patent, respirations nonlabored but mildly tachypneic. Rhonchi in bases bilaterally. No appreciable wheezing. CARDIOVASCULAR: Regular rate with irregular rhythm without murmurs, rubs, or gallops. ABDOMINAL: Soft, no appreciable tenderness, nondistended. Normoactive BS. MUSCULOSKELETAL: No gross deformities. No significant peripheral edema. SKIN: Warm, dry, normal color. NEURO: Alert, but somewhat somnolent. Answers some questions. Speech clear. No ataxic movements. No appreciable focal deficits. PSYCHIATRIC: anxious but better today Const: General: comfortable Objective Data Vital Signs Vital Signs: Vital Signs - 24 hr 06/14/24 20:00 06/14/24 21:50 06/15/24 05:51 Temperature 97.3 F L 97.8 F Pulse Rate 88 97 Respiratory Rate 16 18 Blood Pressure 150/94 H 135/79 Pulse Oximetry 95 93 Oxygen Delivery Room Air 06/15/24 08:00 06/15/24 08:17 Temperature Pulse Rate 98 Respiratory Rate Blood Pressure Pulse Oximetry 93 Oxygen Delivery Room Air Intake/Output Intake/Output: Intake & Output 06/12/24 06/13/24 06/14/24 06/15/24 23:59 23:59 23:59 23:59 Intake Total 2540 1625 1100 970 Output Total 997 062 3345 1900 Balance 1840 1125 -425 -930 Meds/Results Medications: Active Medications Generic Name Dose Route Start Last Admin Trade Name Freq PRN Reason Stop Dose Admin Acetaminophen 650 mg 06/12/24 01:42 06/14/24 14:24 Acetaminophen 325 Mg Tablet PO 650 mg Q4H PRN Administration Mild Pain (1-3) or Fever Alprazolam 0.5 mg 06/12/24 09:00 06/15/24 08:16 Alprazolam (*Crx) 0.5 Mg Tablet PO 0.5 mg BID [facility] Administration Amiodarone HCl 200 mg 06/12/24 09:55 06/15/24 08:17 Amiodarone Hcl 200 Mg Tablet PO 200 mg DAILY [facility] Administration Apixaban 5 mg 06/12/24 09:40 06/15/24 08:17 Apixaban 5 Mg Tablet PO 5 mg Q12HR [facility] Administration Atorvastatin Calcium 40 mg 06/12/24 21:00 06/14/24 21:11 Atorvastatin 40 Mg Tablet PO 40 mg HS [facility] Administration Buspirone HCl 5 mg 06/14/24 21:00 06/15/24 08:17 Buspirone Hcl 5 Mg Tablet PO 5 mg Q12HR [facility] Administration Dexamethasone 6 mg 06/15/24 21:00 Dexamethasone 2 Mg Tablet PO 06/20/24 21:01 QHS [facility] Dextrose 12.5 gm 06/12/24 01:42 Dextrose 50% 25 Gm/50 Ml Syringe IV PUSH PRN PRN Hypoglycemia Protocol Diclofenac Sodium 1 applic 06/12/24 09:37 Diclofenac Sodium 1% 100 Gm Gel (*Bkc) TOPICAL QID PRN pain Diltiazem HCl 180 mg 06/12/24 09:55 06/15/24 08:17 Diltiazem Hcl Cd 180 Mg Cap.24hr PO 180 mg DAILY [facility] Administration Doxycycline Hyclate 100 mg 06/15/24 12:00 06/15/24 12:17 Doxycycline Hyclate 100 Mg Tablet PO 06/16/24 09:01 100 mg Q12HR [facility] Administration Fluoxetine HCl 10 mg 06/12/24 09:55 06/15/24 08:17 Fluoxetine Hcl 10 Mg Capsule PO 10 mg DAILY [facility] Administration Fluoxetine HCl 20 mg 06/12/24 09:55 06/15/24 08:18 Fluoxetine Hcl 20 Mg Capsule PO 20 mg DAILY [facility] Administration Furosemide 40 mg 06/12/24 09:55 06/15/24 08:18 Furosemide 40 Mg Tablet PO 40 mg DAILY [facility] Administration Glucagon 1 mg 06/12/24 01:42 Glucagon For Inj 1 Mg Vial IM PRN PRN Hypoglycemia Protocol Glucose 15 gm 06/12/24 01:42 Glucose Oral Gel 15 Gm Of Glucse In 37.5 Gm Tube PO PRN PRN Hypoglycemia Protocol Ceftriaxone Sodium 1 gm in 50 mls @ 100 mls/hr 06/12/24 22:00 06/14/24 21:38 Rocephin 1 Gm/Ns 50 Ml IVPB 06/15/24 22:29 Infused Q24H [facility] Infusion Remdesivir 100 mg in 250 mls @ 250 mls/hr 06/12/24 22:00 06/14/24 22:10 IVPB 06/15/24 22:59 Infused Q24H [facility] Infusion Dextrose 1,000 mls @ 100 mls/hr 06/12/24 01:42 Dextrose 5% 1,000 Ml IVPB PRN PRN Hypoglycemia Protocol Losartan Potassium 25 mg 06/12/24 09:55 06/15/24 08:18 Losartan Potassium 25 Mg Tablet PO 25 mg DAILY [facility] Administration Meloxicam 7.5 mg 06/12/24 09:55 06/15/24 08:18 Meloxicam 7.5 Mg Tablet PO 7.5 mg DAILY [facility] Administration Ondansetron HCl 4 mg 06/12/24 01:42 Ondansetron Inj 4 Mg/2 Ml Vial IV PUSH Q4H PRN Nausea Tramadol HCl 50 mg 06/12/24 09:37 06/14/24 21:11 Tramadol Hcl (*Crx) 50 Mg Tablet PO 50 mg BID PRN Administration pain 4 -6 Radiology Results: ITS Impressions Head CT 06/11/24 22:28 Impression: No acute intracranial hemorrhage or suspicious mass effect. Inflammatory sinus disease. Cervical Spine CT 06/11/24 22:30 Impression: Significant degenerative disease with 4.5 mm of anterolisthesis of C3 onto C4, an interval change from 2009, age indeterminate. Noncontrast enhanced MRI of the cervical spine may be performed for determination of the acuity. Hip/Pelvis X-Ray 06/11/24 22:39 IMPRESSION: Significant degenerative disease, without acute fracture. Chest X-Ray 06/14/24 08:26 IMPRESSION: 1. Persistent opacities in the bilateral lower lung zones which could represent atelectasis, pneumonia, mild pulmonary edema or some combination thereof. 2. Cardiomegaly. Quality VTE Prophylaxis VTE prophylaxis: pharmacologic ordered
[2024-06-15 20:00] VITALS: PULSE 93; RESP 18; O2SAT 94
[2024-06-15] MEDS: dexAMETHasone 2 MG TABLET 6 MG PO (20:15)
[2024-06-15] MEDS: ATORVASTATIN 40 MG TABLET PO (20:15)
[2024-06-15 22:00] VITALS: BP 147/92; PULSE 93; RESP 18; TEMP 36.7; O2SAT 94
[2024-06-16] MEDS: REMDESIVIR 100 MG/NS 250 ML 100 MG/250 ML BAG 250 MG IVPB (01:10)
[2024-06-16 06:00] VITALS: BP 154/11; PULSE 121; RESP 18; TEMP 36.2; O2SAT 98
[2024-06-16] MEDS: ALPRAZolam (*CRX) 0.5 MG TABLET PO ×2 (08:28→17:04)
[2024-06-16 08:29] VITALS: PULSE 86
[2024-06-16] MEDS: AMIODARONE HCL 200 MG TABLET PO (08:29)
[2024-06-16] MEDS: FLUoxetine HCL 20 MG CAPSULE PO (08:30)
[2024-06-16] MEDS: LOSARTAN POTASSIUM 25 MG TABLET PO (08:30)
[2024-06-16] MEDS: APIXABAN 5 MG TABLET PO ×2 (08:30→20:15)
[2024-06-16] MEDS: FLUoxetine HCL 10 MG CAPSULE PO (08:30)
[2024-06-16] MEDS: FUROSEMIDE 40 MG TABLET PO (08:30)
[2024-06-16] MEDS: MELOXICAM 7.5 MG TABLET PO (08:30)
[2024-06-16] MEDS: busPIRone HCL 5 MG TABLET PO ×2 (08:31→20:15)
[2024-06-16] MEDS: dilTIAZem HCL CD 180 MG CAP.24HR PO (08:31)
[2024-06-16] MEDS: DOXYCYCLINE HYCLATE 100 MG TABLET PO ×2 (08:31→20:15)
--- NOTE | 2024-06-16 11:47 | P.PNIM_ITS ---
Progress Note: A&P Assessment and Plan (1) Acute hypoxic respiratory failure: Code(s): J96.01 - Acute respiratory failure with hypoxia Status: Acute Assessment and Plan: Per ems report, patient was found to be hypoxic on RA upon their arrival down to 87%. She was placed on 2L NC at that time. - Oxygen supplementation: weaned back to room air - Suspected cause: Covid 19 and pneumonia - Chest XR 06/14: 1. Persistent opacities in the bilateral lower lung zones which could represent atelectasis, pneumonia, mild pulmonary edema or some combination thereof. 2. Cardiomegaly. (2) Pneumonia: Code(s): J18.9 - Pneumonia, unspecified organism Status: Acute Assessment and Plan: - Chest XR 06/11: Mild pulmonary vascular congestion with patchy bilateral infiltrates - Chest XR 06/13: Mild pulmonary vascular congestion with a right mid to lower lobe infiltrate - Chest XR 06/14: 1. Persistent opacities in the bilateral lower lung zones which could represent atelectasis, pneumonia, mild pulmonary edema or some combination thereof. 2. Cardiomegaly. - started on tx: azithromycin and doxycycline on 06/16 - Viral PCR: Covid - MRSA negative - weaned back to baseline room air, no supplemental O2 requirement - Monitor vital signs, I&Os, neuro status and patient is a fall risk - Follow WBC, serum electrolytes, temperature curves and cultures (3) COVID-19: Code(s): U07.1 - COVID-19 Status: Acute Assessment and Plan: IV antibiotics (ceftriaxone- end date- 06/15 2200), remdesivir, Steroids and oxygen. wbc elevated - but on steroids- end dats 06/[address] in COVID19 isolation precautions, cardiac monitoring, and continuous pulse ox Monitor serum electrolytes, CRP, Lactic acid, troponin, CBC, WBC, temperature curve and follow cultures Weaned back to baseline RA, Oxygen via NC; wean as tolerated. Keep spO2 greater than 91% Chest XR concerning for bacterial pneumonia, started on IV antibiotics Pt is a candidate for Remdesivir and Dexamethasone, continue treatment according to suggested guidelines. Remdesivir 200 mg IV x1, then 100 mg IV x4 days, dexamethasone 6 mg IV daily x 10 days, or until discharge (4) Fall from ground level: Code(s): W18.30XA - Fall on same level, unspecified, initial encounter Status: Acute Assessment and Plan: Unwitnessed fall from ground level at [place], possible cause maybe hypoxia from COVID. - Head CT: No acute intracranial hemorrhage or suspicious mass effect. Inflammatory sinus disease. - C spine CT: Significant degenerative disease with 4.5 mm of anterolisthesis of C3 onto C4, an interval change from 2009, age indeterminate. Noncontrast enhanced MRI of the cervical spine may be performed for determination of the acuity. - Chest XR: Mild pulmonary vascular congestion with patchy bilateral infiltrates - Hip/pelvis XR: Significant degenerative disease, without acute fracture. - PT/OT (5) Bipolar depression: Code(s): F31.9 - Bipolar disorder, unspecified Status: Acute Assessment and Plan: Stable on current medications, continue current treatment. (6) Essential (primary) hypertension: Code(s): I10 - Essential (primary) hypertension Status: Acute Assessment and Plan: Chronic, continue home medications - diltiazem 180 mg daily - lasix 40 mg daily - losartan 25 mg daily - blood pressures remain stable, continue to monitor (7) Dementia: Code(s): F03.90 - Unspecified dementia, unspecified severity, without behavioral di sturbance, psychotic disturbance, mood disturbance, and anxiety Status: Acute Assessment and Plan: AOx2 at baseline. Stable on current medications, continue current treatment Plan Patient is DNR. DVT prophylaxis Eliquis- high fall and bleeding risk Patient is admitted as full admission. Time Spent With Patient Time with patient: 25 - 35 minutes Subjective Date/time seen: 06/16/24 11:47 Interval history: 68 y/o female resident of [facility] with PMH of AFIB on Eliquis/amiodarone/diltiazem, dementia, bipolar disorder was sent to ER for evaluation of a unwitnessed fall at [place]. Patient is pleasant lying comfortably in bed. She is alert and oriented x2 but noticeably confused with further discussion. She endorses shortness of breath but has no other complaints denying chest pain, palpitations, nausea/vomiting and abdominal pain. Review of Systems Review of Systems: All systems reviewed & are unremarkable except as noted in HPI and below Exam Narrative: AF HR 104 RR 16 SpO2 96 BP 135/86 General: female in no acute respiratory distress who is nontoxic appearing, lying semi recumbent in bed. HEENT: Normocephalic. Atraumatic. Extraocular movement intact. Sclera clear and anicteric. No facial asymmetry. Chest: Lungs are coarse to auscultation bilaterally. CV: Heart was regular rate and rhythm. S1-S2. No murmurs, gallops, or rubs. Abd: Abdomen was soft. Nontender. Nondistended. Positive bowel sounds. No organomegaly or masses. Ext: No clubbing, cyanosis, or edema. 2+ DP pulses bilaterally. Neuro: Patient is alert and oriented x2, but noticeably confused with further discussion. Speech is clear. Objective Data Vital Signs Vital Signs: Vital Signs - 24 hr 06/15/24 14:00 06/15/24 20:00 06/15/24 22:00 Temperature 97.8 F 98.1 F Pulse Rate 81 93 93 Respiratory Rate 18 18 18 Blood Pressure 129/69 147/92 H Pulse Oximetry 93 94 94 Oxygen Delivery Room Air 06/16/24 06:00 06/16/24 08:00 06/16/24 08:29 Temperature 97.2 F L Pulse Rate 121 H 86 Respiratory Rate 18 Blood Pressure 154/11 H Pulse Oximetry 98 Oxygen Delivery Room Air Intake/Output Intake/Output: Intake & Output 06/13/24 06/14/24 06/15/24 06/16/24 23:59 23:59 23:59 23:59 Intake Total 1625 1100 1690 477 Output Total 500 1525 4300 2700 Balance 1125 -425 -2610 -2223 Meds/Results Medications: Active Medications Generic Name Dose Route Start Last Admin Trade Name Freq PRN Reason Stop Dose Admin Acetaminophen 650 mg 06/12/24 01:42 06/14/24 14:24 Acetaminophen 325 Mg Tablet PO 650 mg Q4H PRN Administration Mild Pain (1-3) or Fever Alprazolam 0.5 mg 06/12/24 09:00 06/16/24 08:28 Alprazolam (*Crx) 0.5 Mg Tablet PO 0.5 mg BID SOCORRO Administration Amiodarone HCl 200 mg 06/12/24 09:55 06/16/24 08:29 Amiodarone Hcl 200 Mg Tablet PO 200 mg DAILY SOCORRO Administration Apixaban 5 mg 06/12/24 09:40 06/16/24 08:30 Apixaban 5 Mg Tablet PO 5 mg Q12HR SOCORRO Administration Atorvastatin Calcium 40 mg 06/12/24 21:00 06/15/24 20:15 Atorvastatin 40 Mg Tablet PO 40 mg HS SOCORRO Administration Buspirone HCl 5 mg 06/14/24 21:00 06/16/24 08:31 Buspirone Hcl 5 Mg Tablet PO 5 mg Q12HR SOCORRO Administration Dexamethasone 6 mg 06/15/24 21:00 06/15/24 20:15 Dexamethasone 2 Mg Tablet PO 06/20/24 21:01 6 mg QHS SOCORRO Administration Dextrose 12.5 gm 06/12/24 01:42 Dextrose 50% 25 Gm/50 Ml Syringe IV PUSH PRN PRN Hypoglycemia Protocol Diclofenac Sodium 1 applic 06/12/24 09:37 Diclofenac Sodium 1% 100 Gm Gel (*Bk) TOPICAL QID PRN pain Diltiazem HCl 180 mg 06/12/24 09:55 06/16/24 08:31 Diltiazem Hcl Cd 180 Mg Cap.24hr PO 180 mg DAILY SOCORRO Administration Fluoxetine HCl 10 mg 06/12/24 09:55 06/16/24 08:30 Fluoxetine Hcl 10 Mg Capsule PO 10 mg DAILY SOCORRO Administration Fluoxetine HCl 20 mg 06/12/24 09:55 06/16/24 08:30 Fluoxetine Hcl 20 Mg Capsule PO 20 mg DAILY SOCORRO Administration Furosemide 40 mg 06/12/24 09:55 06/16/24 08:30 Furosemide 40 Mg Tablet PO 40 mg DAILY SOCORRO Administration Glucagon 1 mg 06/12/24 01:42 Glucagon For Inj 1 Mg Vial IM PRN PRN Hypoglycemia Protocol Glucose 15 gm 06/12/24 01:42 Glucose Oral Gel 15 Gm Of Glucse In 37.5 Gm Tube PO PRN PRN Hypoglycemia Protocol Dextrose 1,000 mls @ 100 mls/hr 06/12/24 01:42 Dextrose 5% 1,000 Ml IVPB PRN PRN Hypoglycemia Protocol Losartan Potassium 25 mg 06/12/24 09:55 06/16/24 08:30 Losartan Potassium 25 Mg Tablet PO 25 mg DAILY SOCORRO Administration Meloxicam 7.5 mg 06/12/24 09:55 06/16/24 08:30 Meloxicam 7.5 Mg Tablet PO 7.5 mg DAILY SOCORRO Administration Ondansetron HCl 4 mg 06/12/24 01:42 Ondansetron Inj 4 Mg/2 Ml Vial IV PUSH Q4H PRN Nausea Tramadol HCl 50 mg 06/12/24 09:37 02/17/25 21:11 Tramadol Hcl (*Crx) 50 Mg Tablet PO 50 mg BID PRN Administration pain 4 -6 Radiology Results: ITS Impressions Head CT 06/11/24 22:28 Impression: No acute intracranial hemorrhage or suspicious mass effect. Inflammatory sinus disease. Cervical Spine CT 06/11/24 22:30 Impression: Significant degenerative disease with 4.5 mm of anterolisthesis of C3 onto C4, an interval change from 2009, age indeterminate. Noncontrast enhanced MRI of the cervical spine may be performed for determination of the acuity. Hip/Pelvis X-Ray 06/11/24 22:39 IMPRESSION: Significant degenerative disease, without acute fracture. Chest X-Ray 06/14/24 08:26 IMPRESSION: 1. Persistent opacities in the bilateral lower lung zones which could represent atelectasis, pneumonia, mild pulmonary edema or some combination thereof. 2. Cardiomegaly. Quality VTE Prophylaxis VTE prophylaxis: pharmacologic ordered
[2024-06-16 12:39] LABS: Basophils Absolute Auto 0.1 K/mm3 (0.0-0.1); Basophils Percent Auto 0.3 % (0.2-1.2); Hematocrit 35.1 % (37.0-47.0); Immature Granulocyte Absolute 0.84 K/mm3 (0.00-0.031); Immature Granulocyte Percent A 4.7 % (0-0.5); Lymphocytes Absolute Auto 1.76 K/mm3 (0.9-3.2); Lymphocytes Percent Auto 9.9 % (18.3-44.2); Mean Corpuscular HGB Conc 31.3 g/dl (32-36); Mean Corpuscular Hemoglobin 26.2 pg (26-34); Mean Corpuscular Volume 83.6 fl (80-100); Mean Platelet Volume 11.6 fl (7.4-10.4); Monocytes Absolute Auto 1.7 K/mm3 (0.1-0.6); Monocytes Percent Auto 9.7 % (2.6-8.5); Neutrophils Absolute Auto 13.4 K/mm3 (1.3-6.7); Neutrophils Percent Auto 75.4 % (45.5-73.1); Nucleated Red Blood Cells Perc 1.5 % (0.0-0.2); Platelet Count Result 508 k/mm3 (150-375); Red Cell Distribution Width 19.4 % (11.5-14.5); White Blood Count 17.7 K/mm3 (4.5-10.0)
[2024-06-16 13:04] LABS: Alanine Aminotransferase 50 U/L (6-35); Albumin Level 3.5 g/dL (3.5-5.1); Alkaline Phosphatase 99 U/L (38-126); Anion Gap 11 mmol/L (4-12); Aspartate Amino Transferase 37 U/L (14-36); Bilirubin,Total 0.6 mg/dL (0.2-1.3); Blood Urea Nitrogen 33 mg/dL (7-17); Calcium 8.4 mg/dL (8.4-10.2); Carbon Dioxide 27 mmol/L (22-30); Chloride 99 mmol/L (98-107); Estimated CRCL calculation 49 ml/min; Estimated Glomerular Filt Rate > 60; Glucose 187 mg/dL (65-110); Potassium 3.8 mmol/L (3.4-5.0); Sodium 137 mmol/L (137-145)
[2024-06-16 13:15] LABS: Anisocytosis 2+; Ovalocytes 1+; Platelet Estimate Increased (Adequate); Schistocytes None Seen; Stomatocytes 1+; Tear Drop Cells 1+
[2024-06-16 14:00] VITALS: BP 135/86; PULSE 104; RESP 16; TEMP 36.2; O2SAT 96
[2024-06-16 19:55] VITALS: PULSE 104; RESP 16; O2SAT 96
[2024-06-16] MEDS: dexAMETHasone 2 MG TABLET 6 MG PO (20:14)
[2024-06-16] MEDS: ATORVASTATIN 40 MG TABLET PO (20:15)
[2024-06-16 21:56] VITALS: BP 132/97; PULSE 121; RESP 20; TEMP 36.4; O2SAT 98
[2024-06-17 06:00] VITALS: BP 142/103; PULSE 106; RESP 20; TEMP 37; O2SAT 96
[2024-06-17 07:46] VITALS: PULSE 70
[2024-06-17] MEDS: DOXYCYCLINE HYCLATE 100 MG TABLET PO ×2 (07:46→20:40)
[2024-06-17] MEDS: busPIRone HCL 5 MG TABLET PO ×2 (07:46→20:40)
[2024-06-17] MEDS: ALPRAZolam (*CRX) 0.5 MG TABLET PO ×2 (07:46→16:25)
[2024-06-17] MEDS: APIXABAN 5 MG TABLET PO ×2 (07:46→20:40)
[2024-06-17] MEDS: FUROSEMIDE 40 MG TABLET PO (07:46)
[2024-06-17] MEDS: AMIODARONE HCL 200 MG TABLET PO (07:46)
[2024-06-17] MEDS: dilTIAZem HCL CD 180 MG CAP.24HR PO (07:46)
[2024-06-17] MEDS: MELOXICAM 7.5 MG TABLET PO (07:47)
[2024-06-17] MEDS: FLUoxetine HCL 10 MG CAPSULE PO (07:47)
[2024-06-17] MEDS: FLUoxetine HCL 20 MG CAPSULE PO (07:47)
[2024-06-17] MEDS: LOSARTAN POTASSIUM 25 MG TABLET PO (07:47)
[2024-06-17] MEDS: traMADol HCL (*CRX) 50 MG TABLET PO (07:50)
[2024-06-17 08:16] VITALS: O2SAT 95
[2024-06-17 08:17] LABS: Basophils Absolute Auto 0.1 K/mm3 (0.0-0.1); Basophils Percent Auto 0.4 % (0.2-1.2); Hemoglobin 11.3 g/dL (12.0-15.0); Immature Granulocyte Absolute 0.64 K/mm3 (0.00-0.031); Immature Granulocyte Percent A 4.1 % (0-0.5); Lymphocytes Percent Auto 9.5 % (18.3-44.2); Mean Corpuscular HGB Conc 31.4 g/dl (32-36); Mean Corpuscular Hemoglobin 26.2 pg (26-34); Mean Corpuscular Volume 83.3 fl (80-100); Mean Platelet Volume 11.2 fl (7.4-10.4); Monocytes Absolute Auto 0.7 K/mm3 (0.1-0.6); Monocytes Percent Auto 4.6 % (2.6-8.5); Neutrophils Absolute Auto 12.9 K/mm3 (1.3-6.7); Neutrophils Percent Auto 81.4 % (45.5-73.1); Nucleated Red Blood Cells Perc 1.9 % (0.0-0.2); Platelet Count Result 472 k/mm3 (150-375); Red Blood Count 4.32 M/mm3 (4.2-5.4); Red Cell Distribution Width 19.9 % (11.5-14.5); White Blood Count 15.8 K/mm3 (4.5-10.0)
[2024-06-17 08:35] LABS: Alanine Aminotransferase 50 U/L (6-35); Albumin Level 3.5 g/dL (3.5-5.1); Alkaline Phosphatase 95 U/L (38-126); Anion Gap 7 mmol/L (4-12); Aspartate Amino Transferase 31 U/L (14-36); Bilirubin,Total 0.6 mg/dL (0.2-1.3); Blood Urea Nitrogen 33 mg/dL (7-17); Calcium 8.7 mg/dL (8.4-10.2); Carbon Dioxide 31 mmol/L (22-30); Chloride 103 mmol/L (98-107); Estimated CRCL calculation 56 ml/min; Estimated Glomerular Filt Rate > 60; Glucose 121 mg/dL (65-110); Potassium 4.2 mmol/L (3.4-5.0); Sodium 141 mmol/L (137-145)
[2024-06-17 08:42] LABS: Anisocytosis 2+; Hypochromasia 1+; Ovalocytes 1+; Platelet Estimate Increased (Adequate); Target Cells 1+; Tear Drop Cells 1+
[2024-06-17 08:43] LABS: Acanthocytes 1+; Burr Cells 1+; Poikilocytosis 1+; Schistocytes None Seen
--- NOTE | 2024-06-17 08:50 | P.PNIM_ITS ---
Progress Note: A&P Assessment and Plan (1) Acute hypoxic respiratory failure: Code(s): J96.01 - Acute respiratory failure with hypoxia Status: Acute Assessment and Plan: Per ems report, patient was found to be hypoxic on RA upon their arrival down to 87%. She was placed on 2L NC at that time. - Oxygen supplementation: weaned back to room air - Suspected cause: Covid 19 and pneumonia - Chest XR 06/14: 1. Persistent opacities in the bilateral lower lung zones which could represent atelectasis, pneumonia, mild pulmonary edema or some combination thereof. 2. Cardiomegaly. (2) Pneumonia: Code(s): J18.9 - Pneumonia, unspecified organism Status: Acute Assessment and Plan: - Chest XR 06/11: Mild pulmonary vascular congestion with patchy bilateral infiltrates - Chest XR 06/13: Mild pulmonary vascular congestion with a right mid to lower lobe infiltrate - Chest XR 06/14: 1. Persistent opacities in the bilateral lower lung zones which could represent atelectasis, pneumonia, mild pulmonary edema or some combination thereof. 2. Cardiomegaly. - started on tx: Rocephin and doxycycline on 06/16 - Viral PCR: Covid - MRSA negative - weaned back to baseline room air, no supplemental O2 requirement - Monitor vital signs, I&Os, neuro status and patient is a fall risk - Follow WBC, serum electrolytes, temperature curves and cultures 06/17: Patient continues to have coarse lung sounds however they have improved since yesterday. She notes that her shortness of breath has improved as well as cough. (3) COVID-19: Code(s): U07.1 - COVID-19 Status: Acute Assessment and Plan: IV antibiotics (ceftriaxone- end date- 06/15 2199), remdesivir, Steroids and oxygen. wbc elevated - but on steroids- end dats 06/[address] in COVID19 isolation precautions, cardiac monitoring, and continuous pulse ox Monitor serum electrolytes, CRP, Lactic acid, troponin, CBC, WBC, temperature curve and follow cultures Weaned back to baseline RA, Oxygen via NC; wean as tolerated. Keep spO2 greater than 91% (4) Fall from ground level: Code(s): W18.30XA - Fall on same level, unspecified, initial encounter Status: Acute Assessment and Plan: Unwitnessed fall from ground level at [place], possible cause maybe hypoxia from COVID. - Head CT: No acute intracranial hemorrhage or suspicious mass effect. Inflammatory sinus disease. - C spine CT: Significant degenerative disease with 4.5 mm of anterolisthesis of C3 onto C4, an interval change from 2009, age indeterminate. Noncontrast enhanced MRI of the cervical spine may be performed for determination of the acuity. - Chest XR: Mild pulmonary vascular congestion with patchy bilateral infiltrates - Hip/pelvis XR: Significant degenerative disease, without acute fracture. (5) Bipolar depression: Code(s): F31.9 - Bipolar disorder, unspecified Status: Acute Assessment and Plan: Stable on current medications, continue current treatment. (6) Essential (primary) hypertension: Code(s): I10 - Essential (primary) hypertension Status: Acute Assessment and Plan: Chronic, continue home medications - diltiazem 180 mg daily - lasix 40 mg daily - losartan 25 mg daily - blood pressures remain stable, continue to monitor (7) Dementia: Code(s): F03.90 - Unspecified dementia, unspecified severity, without behavioral disturbance, psychotic disturbance, mood disturbance, and anxiety Status: Acute Assessment and Plan: AOx2 at baseline. Stable on current medications, continue current treatment Plan Patient is DNR. DVT prophylaxis Eliquis- high fall and bleeding risk Patient is admitted as full admission. Time Spent With Patient Time with patient: 25 - 35 minutes Subjective Date/time seen: 06/17/24 08:50 Interval history: 68 y/o female resident of [facility] with PMH of AFIB on Eliquis/amiodarone/diltiazem, dementia, bipolar disorder was sent to ER for evaluation of a unwitnessed fall at [place]. Patient is pleasant lying comfortably in bed. She continues to endorse slight shortness of breath but has no other complaints denying chest pain, palpitations, nausea/vomiting, and abdominal pain. Per RN she has been much more active today. Review of Systems Review of Systems: All systems reviewed & are unremarkable except as noted in HPI and below Exam Narrative: AF HR 70 RR 20 SpO2 95 BP 142/107 General: female in no acute respiratory distress who is nontoxic appearing, lying semi recumbent in bed. HEENT: Normocephalic. Atraumatic. Extraocular movement intact. Sclera clear and anicteric. No facial asymmetry. Chest: Lungs are coarse to auscultation bilaterally but improved from yesterday. CV: Heart was regular rate and rhythm. S1-S2. No murmurs, gallops, or rubs. Abd: Abdomen was soft. Nontender. Nondistended. Positive bowel sounds. Ext: No clubbing, cyanosis, or edema. 2+ DP pulses bilaterally. Neuro: Patient is alert and oriented x2, but noticeably confused with further discussion. Speech is clear. Objective Data Vital Signs Vital Signs: Vital Signs - 24 hr 06/16/24 14:00 06/16/24 19:55 06/16/24 21:56 Temperature 97.2 F L 97.6 F Pulse Rate 104 H 104 H 121 H Respiratory Rate 16 16 20 Blood Pressure 135/86 132/97 H Pulse Oximetry 96 96 98 Oxygen Delivery Room Air 06/17/24 06:00 06/17/24 07:46 06/17/24 08:16 Temperature 98.6 F Pulse Rate 106 H 70 Respiratory Rate 20 Blood Pressure 142/103 H Pulse Oximetry 96 95 Oxygen Delivery Room Air Intake/Output Intake/Output: Intake & Output 06/14/24 06/15/24 06/16/24 06/17/24 23:59 23:59 23:59 23:59 Intake Total 1100 1690 1484 0 Output Total 1525 4300 3350 800 Balance -425 -2610 -1866 -800 Meds/Results Medications: Active Medications Generic Name Dose Route Start Last Admin Trade Name Freq PRN Reason Stop Dose Admin Acetaminophen 650 mg 06/12/24 01:42 06/14/24 14:24 Acetaminophen 325 Mg Tablet PO 650 mg Q4H PRN Administration Mild Pain (1-3) or Fever Alprazolam 0.5 mg 06/12/24 09:00 06/17/24 07:46 Alprazolam (*Crx) 0.5 Mg Tablet PO 0.5 mg BID SOCORRO Administration Amiodarone HCl 200 mg 06/12/24 09:55 06/17/24 07:46 Amiodarone Hcl 200 Mg Tablet PO 200 mg DAILY SOCORRO Administration Apixaban 5 mg 06/12/24 09:40 06/17/24 07:46 Apixaban 5 Mg Tablet PO 5 mg Q12HR SOCORRO Administration Atorvastatin Calcium 40 mg 06/12/24 21:00 06/16/24 20:15 Atorvastatin 40 Mg Tablet PO 40 mg HS SOCORRO Administration Buspirone HCl 5 mg 06/14/24 21:00 06/17/24 07:46 Buspirone Hcl 5 Mg Tablet PO 5 mg Q12HR SOCORRO Administration Dexamethasone 6 mg 06/15/24 21:00 06/16/24 20:14 Dexamethasone 2 Mg Tablet PO 06/20/24 21:01 6 mg QHS SOCORRO Administration Dextrose 12.5 gm 06/12/24 01:42 Dextrose 50% 25 Gm/50 Ml Syringe IV PUSH PRN PRN Hypoglycemia Protocol Diclofenac Sodium 1 applic 06/12/24 09:37 Diclofenac Sodium 1% 100 Gm Gel (*[facility]) TOPICAL QID PRN pain Diltiazem HCl 180 mg 06/12/24 09:55 06/17/24 07:46 Diltiazem Hcl Cd 180 Mg Cap.24hr PO 180 mg DAILY SOCORRO Administration Doxycycline Hyclate 100 mg 06/16/24 21:00 06/17/24 07:46 Doxycycline Hyclate 100 Mg Tablet PO 100 mg Q12HR SOCORRO Administration Fluoxetine HCl 10 mg 06/12/24 09:55 06/17/24 07:47 Fluoxetine Hcl 10 Mg Capsule PO 10 mg DAILY SOCORRO Administration Fluoxetine HCl 20 mg 06/12/24 09:55 06/17/24 07:47 Fluoxetine Hcl 20 Mg Capsule PO 20 mg DAILY SOCORRO Administration Furosemide 40 mg 06/12/24 09:55 06/17/24 07:46 Furosemide 40 Mg Tablet PO 40 mg DAILY SOCORRO Administration Glucagon 1 mg 06/12/24 01:42 Glucagon For Inj 1 Mg Vial IM PRN PRN Hypoglycemia Protocol Glucose 15 gm 06/12/24 01:42 Glucose Oral Gel 15 Gm Of Glucse In 37.5 Gm Tube PO PRN PRN Hypoglycemia Protocol Dextrose 1,000 mls @ 100 mls/hr 06/12/24 01:42 Dextrose 5% 1,000 Ml IVPB PRN PRN Hypoglycemia Protocol Ceftriaxone Sodium 1 gm in 50 mls @ 100 mls/hr 06/16/24 20:00 06/16/24 21:33 Rocephin 1 Gm/Ns 50 Ml IVPB Infused Q24H SOCORRO Infusion Losartan Potassium 25 mg 06/12/24 09:55 06/17/24 07:47 Losartan Potassium 25 Mg Tablet PO 25 mg DAILY SOCORRO Administration Meloxicam 7.5 mg 06/12/24 09:55 06/17/24 07:47 Meloxicam 7.5 Mg Tablet PO 7.5 mg DAILY SOCORRO Administration Ondansetron HCl 4 mg 06/12/24 01:42 Ondansetron Inj 4 Mg/2 Ml Vial IV PUSH Q4H PRN Nausea Tramadol HCl 50 mg 06/12/24 09:37 06/17/24 07:50 Tramadol Hcl (*Crx) 50 Mg Tablet PO 50 mg BID PRN Administration pain 4 -6 Radiology Results: ITS Impressions Head CT 06/11/24 22:28 Impression: No acute intracranial hemorrhage or suspicious mass effect. Inflammatory sinus disease. Cervical Spine CT 06/11/24 22:30 Impression: Significant degenerative disease with 4.5 mm of anterolisthesis of C3 onto C4, an interval change from 2009, age indeterminate. Noncontrast enhanced MRI of the cervical spine may be performed for determinat ion of the acuity. Hip/Pelvis X-Ray 06/11/24 22:39 IMPRESSION: Significant degenerative disease, without acute fracture. Chest X-Ray 06/14/24 08:26 IMPRESSION: 1. Persistent opacities in the bilateral lower lung zones which could represent atelectasis, pneumonia, mild pulmonary edema or some combination thereof. 2. Cardiomegaly. Labs Labs: Laboratory Results - last 24 hr 06/16/24 06/17/24 12:29 08:08 WBC 17.7 H 15.8 H RBC 4.20 4.32 Hgb 11.0 L 11.3 L Hct 35.1 L 36.0 L MCV 83.6 83.3 MCH 26.2 26.2 MCHC 31.3 L 31.4 L RDW 19.4 H 19.9 H Plt Count 508 H 472 H MPV 11.6 H 11.2 H Immature Gran % (Auto) 4.7 H 4.1 H Neut % (Auto) 75.4 H 81.4 H Lymph % (Auto) 9.9 L 9.5 L Angelina % (Auto) 9.7 H 4.6 Eos % (Auto) 0.0 0.0 Baso % (Auto) 0.3 0.4 Lymph # (Auto) 1.76 1.50 Angelina # (Auto) 1.7 H 0.7 H Eos # (Auto) 0.0 0.0 Baso # (Auto) 0.1 0.1 Abs Immat Gran (auto) 0.84 H 0.64 H Absolute Neuts (auto) 13.4 H 12.9 H Absolute Nucleated RBC 0.270 H 0.300 H Band Neutrophils % Not Reportable Not Reportable Nucleated RBC % 1.5 H 1.9 H Platelet Estimate Increased Increased Hypochromasia 1+ Poikilocytosis 1+ Anisocytosis 2+ 2+ Target Cells 1+ Tear Drop Cells 1+ 1+ Ovalocytes 1+ 1+ Stomatocytes 1+ Evita Cells 1+ Acanthocytes (Spur) 1+ Schistocytes None seen None seen Sodium 137 141 Potassium 3.8 4.2 Chloride 99 103 Carbon Dioxide 27 31 H Anion Gap 11 7 BUN 33 H D 33 H Creatinine 0.77 0.66 L Estim Creat Clear Calc 49 56 Estimated GFR > 60 > 60 Glucose 187 H 121 H Calcium 8.4 8.7 Total Bilirubin 0.6 0.6 AST 37 H 31 ALT 50 H 50 H Alkaline Phosphatase 99 95 Total Protein 7.0 7.0 Albumin 3.5 3.5 Quality VTE Prophylaxis VTE prophylaxis: pharmacologic ordered
[2024-06-17 14:00] VITALS: BP 142/90; PULSE 121; RESP 18; TEMP 37; O2SAT 97
[2024-06-17] MEDS: dexAMETHasone 2 MG TABLET 6 MG PO (20:40)
[2024-06-17] MEDS: ATORVASTATIN 40 MG TABLET PO (20:40)
[2024-06-17 22:00] VITALS: BP 115/71; PULSE 85; RESP 18; TEMP 36.6; O2SAT 92
[2024-06-18 06:00] VITALS: BP 128/85; PULSE 60; RESP 18; TEMP 36.5; O2SAT 90
[2024-06-18 06:47] LABS: Basophils Absolute Auto 0.1 K/mm3 (0.0-0.1); Basophils Percent Auto 0.3 % (0.2-1.2); Hematocrit 35.6 % (37.0-47.0); Hemoglobin 11.2 g/dL (12.0-15.0); Immature Granulocyte Absolute 0.71 K/mm3 (0.00-0.031); Lymphocytes Absolute Auto 1.35 K/mm3 (0.9-3.2); Lymphocytes Percent Auto 7.6 % (18.3-44.2); Mean Corpuscular HGB Conc 31.5 g/dl (32-36); Mean Corpuscular Hemoglobin 26.7 pg (26-34); Mean Platelet Volume 11.4 fl (7.4-10.4); Monocytes Absolute Auto 0.8 K/mm3 (0.1-0.6); Monocytes Percent Auto 4.7 % (2.6-8.5); Neutrophils Absolute Auto 14.8 K/mm3 (1.3-6.7); Neutrophils Percent Auto 83.4 % (45.5-73.1); Nucleated Red Blood Cells Perc 1.2 % (0.0-0.2); Platelet Count Result 413 k/mm3 (150-375); Red Blood Count 4.19 M/mm3 (4.2-5.4); Red Cell Distribution Width 20.7 % (11.5-14.5); White Blood Count 17.7 K/mm3 (4.5-10.0)
[2024-06-18 06:57] LABS: Alanine Aminotransferase 44 U/L (6-35); Albumin Level 3.1 g/dL (3.5-5.1); Alkaline Phosphatase 89 U/L (38-126); Anion Gap 6 mmol/L (4-12); Aspartate Amino Transferase 26 U/L (14-36); Bilirubin,Total 0.6 mg/dL (0.2-1.3); Blood Urea Nitrogen 37 mg/dL (7-17); Calcium 8.8 mg/dL (8.4-10.2); Carbon Dioxide 31 mmol/L (22-30); Chloride 102 mmol/L (98-107); Estimated CRCL calculation 55 ml/min; Estimated Glomerular Filt Rate > 60; Glucose 126 mg/dL (65-110); Potassium 4.3 mmol/L (3.4-5.0); Sodium 139 mmol/L (137-145)
[2024-06-18] MEDS: FUROSEMIDE 40 MG TABLET PO (08:43)
[2024-06-18] MEDS: DOXYCYCLINE HYCLATE 100 MG TABLET PO (08:43)
[2024-06-18] MEDS: dilTIAZem HCL CD 180 MG CAP.24HR PO (08:43)
[2024-06-18 08:44] VITALS: PULSE 60
[2024-06-18] MEDS: APIXABAN 5 MG TABLET PO (08:44)
[2024-06-18] MEDS: LOSARTAN POTASSIUM 25 MG TABLET PO (08:44)
[2024-06-18] MEDS: MELOXICAM 7.5 MG TABLET PO (08:44)
[2024-06-18] MEDS: ALPRAZolam (*CRX) 0.5 MG TABLET PO ×2 (08:44→15:29)
[2024-06-18] MEDS: FLUoxetine HCL 20 MG CAPSULE PO (08:44)
[2024-06-18] MEDS: AMIODARONE HCL 200 MG TABLET PO (08:44)
[2024-06-18] MEDS: busPIRone HCL 5 MG TABLET PO (08:44)
[2024-06-18] MEDS: FLUoxetine HCL 10 MG CAPSULE PO (08:46)
--- NOTE | 2024-06-18 11:32 | P.DS_ITS ---
DS: Admitting Diagnosis Discharge Date 06/18/2024 Admitting Diagnosis acute hypoxic respiratory failure pneumonia covid fall bipolar hypertension dementia DS: Discharge Diagnosis Discharge Diagnosis (1) Acute hypoxic respiratory failure: Code(s): J96.01 - Acute respiratory failure with hypoxia Status: Acute (2) Pneumonia: Code(s): J18.9 - Pneumonia, unspecified organism Status: Acute (3) COVID-19: Code(s): U07.1 - COVID-19 Status: Acute (4) Fall from ground level: Code(s): W18.30XA - Fall on same level, unspecified, initial encounter Status: Acute (5) Bipolar depression: Code(s): F31.9 - Bipolar disorder, unspecified Status: Acute (6) Essential (primary) hypertension: Code(s): I10 - Essential (primary) hypertension Status: Acute (7) Dementia: Code(s): F03.90 - Unspecified dementia, unspecified severity, without behavioral disturbance, psychotic disturbance, mood disturbance, and anxiety Status: Acute DS: Summary Hospital Course Reason for hospitalization: acute hypoxic respiratory failure pneumonia covid fall bipolar hypertension dementia Hospital Course: 68 y/o female resident of [facility] with PMH of AFIB on Eliquis/amiodarone/diltiazem, dementia, bipolar disorder was sent to ER for evaluation of a unwitnessed fall at [place]. Per ems report, patient was found to be hypoxic on RA upon their arrival down to 87%. She was placed on 2L NC at that time. On admission patient not meeting sepsis criteria. Viral panel positive for covid. Chest XR on 06/11 showed mild pulmonary vascular congestion with patchy bilateral infiltrates. Patient started on antibiotics and steroids at that time. Chest XR 06/13 on mild pulmonary vascular congestion with a right mid to lower lobe infiltrate. Chest XR 06/14 showed persistent opacities in the bilateral lower lung zones which could represent atelectasis, pneumonia, mild pulmonary edema or some combination thereof and cardiomegaly. Patient completed her antibiotics during admission and was able to be weaned back to room air prior to discharge. Head CT showed no acute intracranial hemorrhage or suspicious mass effect and inflammatory sinus disease. C spine CT showed significant degenerative disease with 4.5 mm of anterolisthesis of C3 onto C4, an interval change from 2009, age indeterminate. Hip/pelvis XR showed significant degenerative disease, without acute fracture. Patient was at baseline ambulation during admission. At time of discharge patient had no complaints stating that her shortness of breath has much improved and she is denying chest pain, palpitations, nausea/vomiting, and abdominal pain. Patient discharged to SNF in a stable condition. She is to follow up with her PCP in 1 week. Status at Discharge Functional status at discharge: wheelchair bound Time Spent with Patient Time attestation: Total time spent providing and/or coordinating discharge services: Time spent: Greater than 30 minutes Exam 2 Narrative: AF HR 60 RR 18 Spo2 90 BP 128/85 General: female in no acute respiratory distress who is nontoxic appearing, lying semi recumbent in bed. HEENT: Normocephalic. Atraumatic. Extraocular movement intact. Sclera clear and anicteric. No facial asymmetry. Chest: Lungs are diminished but clear to auscultation bilaterally CV: Heart was regular rate and rhythm. S1-S2. No murmurs, gallops, or rubs. Abd: Abdomen was soft. Nontender. Nondistended. Positive bowel sounds. Ext: No clubbing, cyanosis, or edema. 2+ DP pulses bilaterally. Neuro: Patient is alert and oriented x2. Speech is clear. DS: Data Data Completed and Pending Completed studies during hospitalization: chest xr chest xr hip/pelvis xr chest xr c spine ct head ct Labs on day of discharge: Labs from last 24 hours 06/18/24 06:06 WBC 17.7 H RBC 4.19 L Hgb 11.2 L Hct 35.6 L MCV 85.0 MCH 26.7 MCHC 31.5 L RDW 20.7 H Plt Count 413 H MPV 11.4 H Immature Gran % (Auto) 4.0 H Neut % (Auto) 83.4 H Lymph % (Auto) 7.6 L [place] % (Auto) 4.7 Eos % (Auto) 0.0 Baso % (Auto) 0.3 Lymph # (Auto) 1.35 [place] # (Auto) 0.8 H Eos # (Auto) 0.0 Baso # (Auto) 0.1 Abs Immat Gran (auto) 0.71 H Absolute Neuts (auto) 14.8 H Absolute Nucleated RBC 0.210 H Nucleated RBC % 1.2 H Sodium 139 Potassium 4.3 Chloride 102 Carbon Dioxide 31 H Anion Gap 6 BUN 37 H Creatinine 0.68 L Estim Creat Clear Calc 55 Estimated GFR > 60 Glucose 126 H Calcium 8.8 Total Bilirubin 0.6 AST 26 ALT 44 H Alkaline Phosphatase 89 Total Protein 7.0 Albumin 3.1 L Discharge Plan Discharge Attending physician on discharge: Bharat Rider Consulting providers: Mila Garcia Discharging Clinician: Mila Garcia Anticipated Discharge Date/Time: 06/18/24 11:27 Patient Disposition: SNF Activity: as tolerated Diet: as tolerated and heart healthy Discharge Instructions: Discharge disposition: Patient was admitted to the hospital for pneumonia and covid resulting in a new oxygen requirement She was able to be weaned back to room air prior to discharge Completed antibiotic course during admission Eat well balanced meals and stay hydrated Keep active, but do not over do it If you notice that you are short of breath sit down and take a break Check your SPO2 periodically, if it is low cough and rest, check again in about 15 minutes, if you remain low, you should come back to the hospital Patient had an [facility]ed fall [facility] the [facility] No acute injuries seen on imaging Continue using wheelchair/walker for mobility Monitor blood pressures Take caution while standing, rising, or moving Change positions slowly taking a break between each position change If you standing feel dizzy sit back down and take a break Encouraged to continue with yearly vaccinations Return to the emergency department if he developed sudden shortness of breath, chest pain, nausea, vomiting, upset stomach or intractable diarrhea Return to the emergency department if you develop fever greater than 101.5 Follow-up with the primary care physician within 1-2 weeks Thank you for [facility] for your healthcare needs Patient Instructions: Pneumonia (DC), COVID-19 (Coronavirus Disease 2019) (DC) Patient Language: Barbadian Stand Alone Forms: General Discharge Information Follow-up/Referrals: Latisha,Kelsey Ramachandran APRN [Primary Care Provider] - 1 Week Discharge Medications: New buspirone 5 mg Tablet 5 mg PO Q12HR Qty: 30 0RF Continued furosemide 40 mg tablet 40 mg PO DAILY atorvastatin [Lipitor] 40 mg tablet 40 mg PO HS diltiazem HCl 180 mg capsule,extended release 24hr 180 mg PO DAILY amiodarone 200 mg tablet 200 mg PO DAILY losartan 25 mg tablet 25 mg PO DAILY alprazolam 0.25 mg tablet 0.5 mg PO BID fluoxetine 20 mg capsule 20 mg PO DAILY fluoxetine 10 mg capsule 10 mg PO DAILY meloxicam 7.5 mg tablet 7.5 mg PO DAILY tramadol 50 mg tablet 50 mg PO BID PRN (Reason: pain) diclofenac sodium [Arthritis Pain (diclofenac)] 1 % gel 2 g topical QID PRN (Reason: pain) Rx Instructions: apply to affected joints apixaban 5 mg tablet 5 mg PO Q12H Date of admission: 06/12/24 08:06 Primary Care Provider: Margaret,Kelsey Ramachandran Admitting Provider: Dariela Perez Attending physician on admission: Dariela Perez Condition: Stable Hospitalist MIPS Heart Failure (Exclusion) Patient has history of Heart Transplant or Left Ventricular Assistive Device?: No IF YES, STOP HERE Heart Failure (Qualifier) Patient has current or prior documentation of LVEF less than or equal to 40%, or mod/servere depressed LVSF?: No IF NO, STOP HERE
--- NOTE | 2024-06-18 12:12 | PC.NURSE ---
Attempted to call report to receiving facility, [facility] @[phone] 06/18/24; no answer, left voice message to call back.
[2024-06-18 14:47] VITALS: BP 120/80; PULSE 119; RESP 18; TEMP 37; O2SAT 96
[2024-06-18] MEDS: traMADol HCL (*CRX) 50 MG TABLET PO (15:27)
== END 2024-06-18 16:00 | DRG 177 ==
LOC: ANHED 06-12 02:08 → ANH3MEDSUR 06-12 02:32
PROVIDERS: Internal Medicine; Admitting Provider Internal Medicine; Emergency Provider Physician Assistant; PCP Nurse Practitioner; Visit Provider Student in an Organized Health Care Education/Training Program
DX: U07.1 COVID-19 (principal); J18.9 Pneumonia, unspecified organism; J96.01 Acute respiratory failure with hypoxia; I48.20 Chronic atrial fibrillation, unspecified; I10 Essential (primary) hypertension; R94.31 Abnormal electrocardiogram [ECG] [EKG]; F31.9 Bipolar disorder, unspecified; F03.90 Unspecified dementia, unspecified severity, without behavioral disturbance, psychotic disturbance, mood disturbance, and anxiety; W19.XXXA Unspecified fall, initial encounter; Z72.0 Tobacco use; Z79.01 Long term (current) use of anticoagulants
CPT/HCPCS: 36415; 70450; 71045; 71046; 72125; 73521; 80053; 81001; 83735; 83880; 84484; 85025; 85027; 85610; 85730; 87040; 87637; 93005; 96365; 96367; 96368; 96375; 99285; A9270; G0378; J0248; J0696; J1100; J1630; J7040; J8540